=== PATIENT | male | born 1955 | race Caucasian/White ===

== ENCOUNTER → 2017-10-06 | Day surgery (SDC) | payer OTHER ==
[~2017-10-06] MED LIST: ACETAMINOPHEN325 M1 PO; ARANESP100 MCG/1 SC; ASPIRIN325 MG PO; ATORVASTATIN CA10 MG PO; BACITRACIN 50,000 UNIT VIAL ONE; BAYER ASPIRIN PO; BUPIVACAINE HCL 0.5% INJ 30 ML VIAL INJ ONE; CALCIUM ACETAT667 M1 PO; CARVEDILOL25 MG PO; CATHFLO ACTIVASE2 MG IV; CEFAZOLIN SOD 1 GM VIAL ONE; CLONIDINE HCL0.2 MG PO; DEXAMETHASONE SOD PHOS INJ 4 MG/ML VIAL ONE; DIPHENOXYLATE-1 EACH PO; DOCUSATE SODIU100 MG PO; FENTANYL CITRATE/PF 100MCG/2 ML INJ ONE; FLUCONAZOLE200 MG PO; FUROSEMIDE40 MG PO; FUROSEMIDE40 MG/4 ML IV; GABAPENTIN100 MG PO; HYDRALAZINE HC100 MG PO; INSULIN PEN SC; ISOSORBIDE MONO60 MG PO; KAYEXALATE453.6 GM PO; LASIX40 MG PO; LEVEMIR100 UNIT/1 SC; LIDOCAINE HCL 2% LOCAL INJ 5 ML SDV VIAL INJ ONE; LIDODERM700 MG TD; MEROPENEM500 MG IV; MIDAZOLAM HCL 2 MG/2 ML VIAL ONE; MULTI-VITAMIN1 EACH PO; NEOSTIGMINE 1 MG/ML 10ML VIAL ONE; NOVOLOG MI100 UNITS/ SC; ONDANSETRON HCL INJ 2 MG/ML VIAL ONE; PROPOFOL IV EMULSION 10 MG/ML 20 ML VIAL ONE; SANTYL15 GM TOP; SEVOFLURANE INHAL SOLN 250 ML PEN BTL ONE; TRAMADOL-ACETAMI1 EA PO; VANCOMYCIN HCL 1 GM VIAL ONE; VANCOMYCIN HCL1 GM IV
[2017-10-06 05:42] LABS: BASOPHILS # (AUTO) 0.1 (0.0-0.1); BASOPHILS % 0.4 % (0.0-1.0); EOSINOPHILS # (AUTO) 0.1 (0.0-0.4); HEMOGLOBIN 8.1 g/dL (14.0-18.0); LYMPHOCYTES # (AUTO) 1.3 (1.0-3.2); LYMPHOCYTES % 9.6 % (18.0-39.1); MEAN CORPUSCULAR HEMOGLOBIN 29.8 pg (28-32); MEAN CORPUSCULAR HGB CONC 36.5 g/dL (31-35); MEAN CORPUSCULAR VOLUME 81.6 fL (81-99); MONOCYTES # (AUTO) 0.8 (0.2-0.8); MONOCYTES % 5.7 % (4.4-11.3); NEUTROPHILS # (AUTO) 11.6 (2.1-6.9); NEUTROPHILS % 82.9 % (38.7-80.0); PLATELET COUNT 290 x10e3/uL (140-360); RED BLOOD COUNT 2.72 x10e6/uL (4.3-5.7); RED CELL DISTRIBUTION WIDTH 13.2 % (11.7-14.4)
[2017-10-06 05:57] LABS: HEMATOCRIT 22.2 % (38.2-49.6)
[2017-10-06 06:08] LABS: CALCIUM 7.2 mg/dL (8.4-10.2); CREATININE, SERUM 5.88 mg/dL (0.72-1.25)
--- NOTE | 2017-10-06 06:55 | Diagnostic Imaging Report ---
PROCEDURE: CHEST SINGLE (PORTABLE) COMPARISON: None. INDICATIONS: PRE-OP CXR FINDINGS: LUNGS: No consolidations or edema. PLEURA: No effusions or pneumothorax. HEART \T\ MEDIASTINUM: The heart is within normal size-limits. BONES \T\ SOFT TISSUES: No acute findings. CONCLUSION: No acute thoracic abnormality. Dictated by: Link Salazar M.D. on 10/06/2017 at 6:55 Electronically approved by: Link Salazar M.D. on 10/06/2017 at 6:55
--- NOTE | 2017-10-06 10:26 | Operative Report ---
DATE OF PROCEDURE: October 06, 2017 DATE OF : 1955 PREOPERATIVE DIAGNOSIS: Right foot osteomyelitis. POSTOPERATIVE DIAGNOSIS: Right foot osteomyelitis. PLANNED PROCEDURE: Right foot transmetatarsal amputation. SURGEON: Rick Ngo DPM AIRPLANE DISPATCH CLERK: Kee Crowe DPM ANESTHESIA: General with a postoperative block consisting of 15 mL of 0.5% Marcaine plain. HEMOSTASIS: Esmarch tourniquet applied for approximately 30 minutes. MATERIALS: 3-0 nylon. ESTIMATED BLOOD LOSS: Less than 10 mL. PATHOLOGY: Anaerobic and aerobic cultures, hallux, 2nd digit, and 2nd metatarsal sent for gross specimen. DETAILS OF PROCEDURE: Patient was seen in the preoperative waiting and the correct procedure and site was identified. The patient was brought to the operating room, placed on the operating table in the supine position. General anesthesia was initiated at this time. The right foot, ankle, and leg were then scrubbed, prepped, and draped in the usual aseptic manner. An Esmarch tourniquet was applied for approximately 30 minutes. Attention was directed to the distal aspect of the patient's right foot where an open ulceration is noted to the plantar aspect of the patient's 2nd metatarsophalangeal joint. There has been a previous amputation of partial rays 3, 4, and 5. The wound probes deep down to the level of bone. The decision was made to proceed with a transmetatarsal amputation of the remaining 1st and 2nd rays. Utilizing a large converging semi-elliptical incision ellipsing the wound, the incision was started. It was carried deep down to the level of bone. Utilizing a towel clamp, the hallux was clasped and the 1st and 2nd digit were disarticulated from the metatarsophalangeal joint and passed off to the back table. At this point, wound cultures were taken of the 2nd metatarsophalangeal joint. Utilizing a sagittal saw, an osteotomy was performed in the distal shaft of the 1st metatarsal and the remaining 2nd metatarsal. These were dissected and excised and passed off to the back table. Utilizing intraoperative fluoroscopy, it was confirmed that the metatarsal parabola was intact. The wound was then debrided of all necrotic and devitalized tissue. All tendons were pulled distally, cut, and allowed to retract proximally into the foot. The wound was then flushed with copious amounts of sterile saline mixed with bacitracin. Wound edges were prepped for closure by removing all dog-ears. The wound was reapproximated utilizing simple interrupted sutures with 3-0 nylon. The incision site was then dressed with Adaptic, 4 x 4's, Kerlix, Tuan wrap, and a postop shoe. Patient tolerated the procedure and anesthesia well. Patient was transferred to the postoperative recovery unit with vital signs stable and vascular status intact. The patient was monitored there for a short period time before being sent home with the following written and oral instructions: 1. Keep the dressing clean, dry, and tact. 2. The patient is to remain 100% nonweightbearing to the right lower extremity. 3. Patient was given the office number and instructed to contact us if any problems should arise. Job#: [id number] VAS
== END | disposition home or self-care (01) ==
LOC: OR 05:28
PROVIDERS: ATTEND Podiatrist Foot & Ankle Surgery
DX: M86.171 Other acute osteomyelitis, right ankle and foot (principal); D64.9 Anemia, unspecified; E11.22 Type 2 diabetes mellitus with diabetic chronic kidney disease; I12.9 Hypertensive chronic kidney disease with stage 1 through stage 4 chronic kidney disease, or unspecified chronic kidney disease; N18.9 Chronic kidney disease, unspecified; Z79.82 Long term (current) use of aspirin; Z79.4 Long term (current) use of insulin
CPT/HCPCS: 28805; 36415; 71045; 80048; 82948; 85025; 87071; 87075; 87186; 87205; 88305; 88311; 93005; J0690; J2001; J2250; J2405; J3370; 88307; J1100; J2710

== ENCOUNTER → 2017-10-26 | Outpatient (CLI) | payer OTHER ==
[~2017-10-26] MED LIST changes: -BACITRACIN 50,000 UNIT VIAL ONE; -BUPIVACAINE HCL 0.5% INJ 30 ML VIAL INJ ONE; -CEFAZOLIN SOD 1 GM VIAL ONE; -DEXAMETHASONE SOD PHOS INJ 4 MG/ML VIAL ONE; -FENTANYL CITRATE/PF 100MCG/2 ML INJ ONE; -LIDOCAINE HCL 2% LOCAL INJ 5 ML SDV VIAL INJ ONE; -MIDAZOLAM HCL 2 MG/2 ML VIAL ONE; -NEOSTIGMINE 1 MG/ML 10ML VIAL ONE; -ONDANSETRON HCL INJ 2 MG/ML VIAL ONE; -PROPOFOL IV EMULSION 10 MG/ML 20 ML VIAL ONE; -SEVOFLURANE INHAL SOLN 250 ML PEN BTL ONE; -VANCOMYCIN HCL 1 GM VIAL ONE
== END ==
LOC: WCC 07:58
PROVIDERS: ATTEND Family Medicine
DX: E11.621 Type 2 diabetes mellitus with foot ulcer (principal); E11.22 Type 2 diabetes mellitus with diabetic chronic kidney disease; T87.89 Other complications of amputation stump; M86.9 Osteomyelitis, unspecified; L97.514 Non-pressure chronic ulcer of other part of right foot with necrosis of bone; N18.4 Chronic kidney disease, stage 4 (severe); A49.02 Methicillin resistant Staphylococcus aureus infection, unspecified site; B96.5 Pseudomonas (aeruginosa) (mallei) (pseudomallei) as the cause of diseases classified elsewhere; B96.89 Other specified bacterial agents as the cause of diseases classified elsewhere; I10 Essential (primary) hypertension; I50.9 Heart failure, unspecified

== ENCOUNTER → 2017-11-06 | Outpatient (CLI) | payer OTHER | LOC: WCC 09:12 | PROVIDERS: ATTEND Family Medicine | DX: T87.89 Other complications of amputation stump (principal); E11.621 Type 2 diabetes mellitus with foot ulcer; E11.22 Type 2 diabetes mellitus with diabetic chronic kidney disease; M86.9 Osteomyelitis, unspecified; L97.514 Non-pressure chronic ulcer of other part of right foot with necrosis of bone; B96.89 Other specified bacterial agents as the cause of diseases classified elsewhere; B96.5 Pseudomonas (aeruginosa) (mallei) (pseudomallei) as the cause of diseases classified elsewhere; A49.02 Methicillin resistant Staphylococcus aureus infection, unspecified site; N18.4 Chronic kidney disease, stage 4 (severe); I10 Essential (primary) hypertension; I50.9 Heart failure, unspecified ==

== ENCOUNTER → 2017-11-07 | Outpatient (CLI) | payer OTHER | LOC: WCC 09:50 | PROVIDERS: ATTEND Family Medicine | DX: T87.89 Other complications of amputation stump (principal); E11.621 Type 2 diabetes mellitus with foot ulcer; E11.22 Type 2 diabetes mellitus with diabetic chronic kidney disease; L97.514 Non-pressure chronic ulcer of other part of right foot with necrosis of bone; M86.9 Osteomyelitis, unspecified; B96.89 Other specified bacterial agents as the cause of diseases classified elsewhere; A49.02 Methicillin resistant Staphylococcus aureus infection, unspecified site; B96.5 Pseudomonas (aeruginosa) (mallei) (pseudomallei) as the cause of diseases classified elsewhere; N18.4 Chronic kidney disease, stage 4 (severe); I10 Essential (primary) hypertension; I50.9 Heart failure, unspecified | CPT/HCPCS: 36415; 82948; 99211; G0277 ==

== ENCOUNTER → 2017-11-14 | Outpatient (CLI) | payer OTHER | LOC: WCC 13:48 | PROVIDERS: ATTEND Family Medicine | DX: T87.89 Other complications of amputation stump (principal); E11.22 Type 2 diabetes mellitus with diabetic chronic kidney disease; E11.621 Type 2 diabetes mellitus with foot ulcer; M86.9 Osteomyelitis, unspecified; L97.514 Non-pressure chronic ulcer of other part of right foot with necrosis of bone; B96.89 Other specified bacterial agents as the cause of diseases classified elsewhere; B96.5 Pseudomonas (aeruginosa) (mallei) (pseudomallei) as the cause of diseases classified elsewhere; A49.02 Methicillin resistant Staphylococcus aureus infection, unspecified site; I10 Essential (primary) hypertension; N18.4 Chronic kidney disease, stage 4 (severe); I50.9 Heart failure, unspecified | CPT/HCPCS: 36415; 82948; G0277 ==

== ENCOUNTER → 2017-11-15 | Outpatient (CLI) | payer OTHER ==
[2017-11-15 10:22] LABS: BASOPHILS % 0.2 % (0.0-1.0); EOSINOPHILS # (AUTO) 0.2 (0.0-0.4); EOSINOPHILS % 2.5 % (0.0-6.0); HEMATOCRIT 18.5 % (38.2-49.6); LYMPHOCYTES % 15.5 % (18.0-39.1); MEAN CORPUSCULAR HEMOGLOBIN 30.3 pg (28-32); MEAN CORPUSCULAR HGB CONC 34.1 g/dL (31-35); MEAN CORPUSCULAR VOLUME 88.9 fL (81-99); MONOCYTES # (AUTO) 0.6 (0.2-0.8); NEUTROPHILS # (AUTO) 4.4 (2.1-6.9); NEUTROPHILS % 72.3 % (38.7-80.0); PLATELET COUNT 171 x10e3/uL (140-360); RED BLOOD COUNT 2.08 x10e6/uL (4.3-5.7); RED CELL DISTRIBUTION WIDTH 14.2 % (11.7-14.4)
[2017-11-15 10:30] LABS: HEMOGLOBIN 6.3 g/dL (14.0-18.0)
[2017-11-15 10:41] LABS: ALBUMIN 2.8 g/dL (3.5-5.0); ALBUMIN/GLOBULIN RATIO 0.7 (0.8-2.0); ANION GAP 16.5 mmol/L (8-16); CALCIUM 7.2 mg/dL (8.4-10.2); CREATININE, SERUM 7.31 mg/dL (0.72-1.25); POTASSIUM 4.5 mmol/L (3.5-5.1)
[2017-11-15 11:14] LABS: ERYTHROCYTE SEDIMENTATION RATE 129 mm/hr (0-13)
== END ==
LOC: WCC 08:56
PROVIDERS: ATTEND Family Medicine
DX: T87.89 Other complications of amputation stump (principal); E11.621 Type 2 diabetes mellitus with foot ulcer; E11.22 Type 2 diabetes mellitus with diabetic chronic kidney disease; L97.514 Non-pressure chronic ulcer of other part of right foot with necrosis of bone; M86.9 Osteomyelitis, unspecified; B96.89 Other specified bacterial agents as the cause of diseases classified elsewhere; A49.02 Methicillin resistant Staphylococcus aureus infection, unspecified site; B96.5 Pseudomonas (aeruginosa) (mallei) (pseudomallei) as the cause of diseases classified elsewhere; N18.4 Chronic kidney disease, stage 4 (severe); I10 Essential (primary) hypertension; I50.9 Heart failure, unspecified
CPT/HCPCS: 36415; 80053; 83036; 84134; 85025; 85651; 86140; 87071; 87075; 87186; 87205; 99213; G0277

== ENCOUNTER → 2017-11-17 | Outpatient (CLI) | payer OTHER | LOC: WCC 09:13 | PROVIDERS: ATTEND Family Medicine | DX: E11.621 Type 2 diabetes mellitus with foot ulcer (principal); E11.22 Type 2 diabetes mellitus with diabetic chronic kidney disease; L97.514 Non-pressure chronic ulcer of other part of right foot with necrosis of bone; M86.9 Osteomyelitis, unspecified; I10 Essential (primary) hypertension; N18.4 Chronic kidney disease, stage 4 (severe); B96.89 Other specified bacterial agents as the cause of diseases classified elsewhere; A49.02 Methicillin resistant Staphylococcus aureus infection, unspecified site; B96.5 Pseudomonas (aeruginosa) (mallei) (pseudomallei) as the cause of diseases classified elsewhere; I50.9 Heart failure, unspecified | CPT/HCPCS: 36415; 82948 ==

== ENCOUNTER → 2017-11-20 | Outpatient (CLI) | payer OTHER | LOC: WCC 12:07 | PROVIDERS: ATTEND Family Medicine | DX: E11.621 Type 2 diabetes mellitus with foot ulcer (principal); E11.22 Type 2 diabetes mellitus with diabetic chronic kidney disease; L97.514 Non-pressure chronic ulcer of other part of right foot with necrosis of bone; M86.9 Osteomyelitis, unspecified; B96.89 Other specified bacterial agents as the cause of diseases classified elsewhere; N18.4 Chronic kidney disease, stage 4 (severe); I10 Essential (primary) hypertension; I50.9 Heart failure, unspecified ==

== ENCOUNTER → 2017-11-21 | Outpatient (CLI) | payer OTHER | LOC: WCC 09:09 | PROVIDERS: ATTEND Family Medicine | DX: E11.621 Type 2 diabetes mellitus with foot ulcer (principal); E11.22 Type 2 diabetes mellitus with diabetic chronic kidney disease; L97.514 Non-pressure chronic ulcer of other part of right foot with necrosis of bone; M86.9 Osteomyelitis, unspecified; B96.89 Other specified bacterial agents as the cause of diseases classified elsewhere; I10 Essential (primary) hypertension; N18.4 Chronic kidney disease, stage 4 (severe); I50.9 Heart failure, unspecified ==

== ENCOUNTER → 2017-11-24 | Outpatient (CLI) | payer OTHER | LOC: WCC 09:32 | PROVIDERS: ATTEND Family Medicine | DX: E11.621 Type 2 diabetes mellitus with foot ulcer (principal); E11.22 Type 2 diabetes mellitus with diabetic chronic kidney disease; L97.514 Non-pressure chronic ulcer of other part of right foot with necrosis of bone; M86.9 Osteomyelitis, unspecified; B96.89 Other specified bacterial agents as the cause of diseases classified elsewhere; N18.4 Chronic kidney disease, stage 4 (severe); I10 Essential (primary) hypertension; I50.9 Heart failure, unspecified ==

== ENCOUNTER → 2017-11-27 | Outpatient (CLI) | payer OTHER | LOC: WCC 13:30 | PROVIDERS: ATTEND Family Medicine | DX: E11.621 Type 2 diabetes mellitus with foot ulcer (principal); E11.22 Type 2 diabetes mellitus with diabetic chronic kidney disease; M86.9 Osteomyelitis, unspecified; L97.514 Non-pressure chronic ulcer of other part of right foot with necrosis of bone; B96.89 Other specified bacterial agents as the cause of diseases classified elsewhere; N18.4 Chronic kidney disease, stage 4 (severe); I10 Essential (primary) hypertension; I50.9 Heart failure, unspecified ==

== ENCOUNTER → 2017-12-01 | Outpatient (CLI) | payer OTHER | LOC: WCC 10:49 | PROVIDERS: ATTEND Internal Medicine Infectious Disease | DX: E11.22 Type 2 diabetes mellitus with diabetic chronic kidney disease (principal); E11.621 Type 2 diabetes mellitus with foot ulcer; L97.514 Non-pressure chronic ulcer of other part of right foot with necrosis of bone; M86.9 Osteomyelitis, unspecified; N18.4 Chronic kidney disease, stage 4 (severe); I10 Essential (primary) hypertension; I50.9 Heart failure, unspecified; B96.89 Other specified bacterial agents as the cause of diseases classified elsewhere ==

== ENCOUNTER 2017-12-12 15:21 | Inpatient (IN) | payer OTHER ==
[~2017-12-12] VITALS: Ht 182.9 cm; Wt 80.9 kg
--- OUTSIDE RECORDS SUMMARY | 2017-12-12 15:23 | XMS REPORT ---
Author Author [facility] Address Unknown Phone Unavailable Care Team Providers Care Collar Pointer Name Role Phone Iris ALBERCHT Unavailable Unavailable Problems This patient has no known problems. Allergies, Adverse Reactions, Alerts This patient has no known allergies or adverse reactions. Medications This patient has no known medications. Results Test Description Test Time Test Comments Text Results Atomic Results Result Comments CHEST SINGLE (PORTABLE) [place] [id number] Patient Name: CL HIGGINBOTHAM MR #: [id number] : 1955 Age/Sex: 62/M Req #: [id number] Adm Physician: Ordered by: Iris ALBRECHT DPM Report #: [id number] Location: OR Room/Bed: Procedure: [id number] DX/CHEST SINGLE (PORTABLE) Exam Date: 10/06/17 Exam Time: 0538 REPORT STATUS: Signed PROCEDURE: CHEST SINGLE (PORTABLE) COMPARISON: None. INDICATIONS: PRE-OP CXR FINDINGS: LUNGS: No consolidations or edema. PLEURA: No effusions or pneumothorax. HEART T MEDIASTINUM: The heart is within normal size-limits. BONES T SOFT TISSUES: No acute findings. CONCLUSION: No acute thoracic abnormality. Dictated by: Maddison Segal M.D. on 10/06/2017 at 6:55 Electronically approved by: Maddison Segal M.D. on 10/06/2017 at 6:55 Dictated By: MADDISON SEGAL MD 4 Transcribed By: KELVIN on 10/06/17654 COPY TO: Iris ALBRECHT DPM
--- NOTE | 2017-12-12 16:28 | Diagnostic Imaging Report ---
PROCEDURE: A single AP view of the chest. COMPARISON: Patients [facility], , CHEST SINGLE (PORTABLE), 10/06/2017, 5:39. INDICATIONS: SHORTNESS OF BREATH, RENAL FAILURE FINDINGS: Lines/tubes: None. Lungs: The lungs are well inflated and clear. There is no evidence of pneumonia or pulmonary edema. Pleura: There is no pleural effusion or pneumothorax. Heart and mediastinum: The heart and the mediastinum are unremarkable. Bones: No acute bony abnormality. IMPRESSION: 1. No acute cardiopulmonary abnormalities. Luther Cortez M.D. Dictated by: Luther Cortez M.D. on 12/12/2017 at 16:30 Electronically approved by: Luther Cortez M.D. on 12/12/2017 at 16:30
[2017-12-12] MEDS ORDERED: PROPOFOL IV EMULSION 10 MG/ML 50 ML VIAL ONE (17:18)
[2017-12-12] MEDS ORDERED: GLUCAGON FOR INJ 1 MG VIAL ONE (17:18)
[2017-12-12 18:05] LABS: BASOPHILS % 0.3 % (0.0-1.0); EOSINOPHILS # (AUTO) 0.3 (0.0-0.4); EOSINOPHILS % 3.3 % (0.0-6.0); LYMPHOCYTES # (AUTO) 1.1 (1.0-3.2); LYMPHOCYTES % 12.1 % (18.0-39.1); MEAN CORPUSCULAR HEMOGLOBIN 29.6 pg (28-32); MEAN CORPUSCULAR VOLUME 87.1 fL (81-99); MONOCYTES # (AUTO) 0.6 (0.2-0.8); MONOCYTES % 5.9 % (4.4-11.3); NEUTROPHILS # (AUTO) 7.3 (2.1-6.9); NEUTROPHILS % 77.9 % (38.7-80.0); PLATELET COUNT 162 x10e3/uL (140-360); RED BLOOD COUNT 1.86 x10e6/uL (4.3-5.7); RED CELL DISTRIBUTION WIDTH 13.5 % (11.7-14.4)
[2017-12-12 18:08] LABS: HEMATOCRIT 16.2 % (38.2-49.6); HEMOGLOBIN 5.5 g/dL (14.0-18.0)
[2017-12-12] MEDS ORDERED: FUROSEMIDE40 MG PO (18:11)
[2017-12-12] MEDS ORDERED: LEVEMIR100 UNIT/1 SQ (18:11)
[2017-12-12 18:14] LABS: INR 1.41; PARTIAL THROMBOPLASTIN TIME 31.6 seconds (23.8-35.5); PROTHROMBIN TIME 16.2 seconds (11.9-14.5)
[2017-12-12] MEDS ORDERED: SODIUM CHLORIDE 0.9% 250ML 250 ML IV ONE (18:15)
[2017-12-12 18:22] LABS: ALBUMIN 3.5 g/dL (3.5-5.0); ALBUMIN/GLOBULIN RATIO 0.8 (0.8-2.0); ANION GAP 19.6 mmol/L (8-16); CALCIUM 7.7 mg/dL (8.4-10.2); CREATININE, SERUM 8.95 mg/dL (0.72-1.25); MAGNESIUM 1.6 MG/DL (1.3-2.1); PHOSPHORUS 8.5 MG/DL (2.3-4.7); POTASSIUM 4.6 mmol/L (3.5-5.1)
[2017-12-12 18:41] LABS: THYROID STIMULATING HORMONE 1.654 uIU/mL (0.350-4.940)
[2017-12-12] MEDS ORDERED: SODIUM CHLORIDE 0.9% 1000ML 1,000 ML IV ONE (19:00)
[2017-12-12] MEDS ORDERED: DEXTROSE 50% SYRINGE 50 ML IV PRN (19:30)
[2017-12-12] MEDS ORDERED: SODIUM CHLORIDE FLUSH 10 ML SYR INJ PRN (19:30)
[2017-12-12] MEDS ORDERED: ONDANSETRON HCL INJ 2 MG/ML VIAL IV PRN (19:30)
[2017-12-12 21:00] VITALS: BP 155/82
[2017-12-12] MEDS: INSULIN REGULAR, HUMAN 100 UNIT/1 ML 3ML VIAL SQ SCH (21:00)
[2017-12-12 21:45] VITALS: BP 155/82
[2017-12-12] MEDS ORDERED: SODIUM CHLORIDE 0.9% 250ML 250 ML ONE (22:15)
[2017-12-13] VITALS (12 sets, daily range): BP systolic 119–160; BP diastolic 65–93
[2017-12-13] MEDS: INSULIN REGULAR, HUMAN 100 UNIT/1 ML 3ML VIAL SQ SCH ×4 (07:30→20:10)
[2017-12-13] MEDS: SEVELAMER CARBONATE 800 MG TAB PO SCH ×3 (08:00→16:41)
[2017-12-13] MEDS: NIFEDIPINE CR 30 MG TAB PO SCH (09:00)
[2017-12-13] MEDS: CARVEDILOL 12.5 MG TAB PO SCH ×2 (09:00→16:41)
[2017-12-13] MEDS: CHOLECALCIFEROL 1,000 UNIT TAB PO SCH (09:00)
[2017-12-13 10:12] LABS: BASOPHILS % 0.3 % (0.0-1.0); EOSINOPHILS # (AUTO) 0.2 (0.0-0.4); EOSINOPHILS % 2.5 % (0.0-6.0); HEMATOCRIT 20.5 % (38.2-49.6); LYMPHOCYTES # (AUTO) 0.8 (1.0-3.2); LYMPHOCYTES % 8.7 % (18.0-39.1); MEAN CORPUSCULAR HEMOGLOBIN 29.9 pg (28-32); MEAN CORPUSCULAR HGB CONC 34.1 g/dL (31-35); MEAN CORPUSCULAR VOLUME 87.6 fL (81-99); MONOCYTES # (AUTO) 0.6 (0.2-0.8); MONOCYTES % 6.5 % (4.4-11.3); NEUTROPHILS # (AUTO) 7.2 (2.1-6.9); NEUTROPHILS % 81.4 % (38.7-80.0); PLATELET COUNT 125 x10e3/uL (140-360); RED BLOOD COUNT 2.34 x10e6/uL (4.3-5.7); RED CELL DISTRIBUTION WIDTH 13.2 % (11.7-14.4)
[2017-12-13 10:34] LABS: ALBUMIN 2.9 g/dL (3.5-5.0); ALBUMIN/GLOBULIN RATIO 0.8 (0.8-2.0); ANION GAP 17.7 mmol/L (8-16); CALCIUM 7.5 mg/dL (8.4-10.2); CREATININE, SERUM 8.84 mg/dL (0.72-1.25); MAGNESIUM 1.5 MG/DL (1.3-2.1); POTASSIUM 4.7 mmol/L (3.5-5.1)
[2017-12-13 10:54] LABS: THYROID STIMULATING HORMONE 1.345 uIU/mL (0.350-4.940)
[2017-12-13 11:10] LABS: FERRITIN 1736.91 ng/mL (21.81-274.66)
--- NOTE | 2017-12-13 14:30 | Consultation ---
DATE OF CONSULTATION: December 13, 2017 RENAL CONSULTATION Thank you for this consultation, Dr. Pham. Mr. Loredo is a pleasant, 62-year-old male patient of mine with chronic kidney disease, stage 5, that has continued to progress. I saw him for the 1st time in my clinic less than a month ago when he was referred by his end user support specialist here at [facility]. As part of routine wound care workup, they did blood tests on him, and he was found to have elevated creatinine around 5.4 range. He was referred to my clinic. This 5.4 creatinine level was about 3 months ago. Subsequently, I proceeded to do more blood work for his subsequent clinic followup visit that was going to happen in the next week or so. He was found to have elevated BUN in the 120s range and creatinine in the 8.95 range and was found to be profoundly anemic with hemoglobin of 4.8. I proceeded to call the patient and admit him directly to [facility]. The patient did agree and accept that he is at end-stage renal disease and that he would be willing to start on dialysis. He also agreed that he would require blood transfusions. He was admitted overnight through the emergency room and received 3 units of packed red blood cells. The patient's creatinine from yesterday is 8.95 and BUN of 124. These are from yesterday evening. The patient's hemoglobin yesterday evening was at 5.5 and hematocrit 16.2. He has received 3 units of packed red blood cells already. The patient currently does not appear to be fluid overloaded. No nausea, no vomiting, no chest pain, no fever, no chills. No abdominal pain. He does not say that he has had decreased appetite. He does have generalized weakness. He does have a low bicarb of 12 as well, which was from yesterday. Renal consultation has been asked for the management of what is now end-stage renal disease and the management of starting the patient on dialysis. PAST MEDICAL HISTORY 1. Chronic kidney disease, stage 5. 2. History of hypertension. 3. History of peripheral vascular disease with right toe amputation and forefoot amputation. ALLERGIES: NO KNOWN DRUG ALLERGIES. SOCIAL HISTORY: No current tobacco or alcohol use. FAMILY HISTORY: Noncontributory. REVIEW OF SYSTEMS: See HPI. Otherwise, all systems are negative. CURRENT MEDICATIONS 1. Vitamin D3 1,000 units daily. 2. Nifedipine XL. 3. Sevelamer. 4. Carvedilol. PHYSICAL EXAMINATION VITAL SIGNS: Blood pressure 151/80, 86 pulse, 19 respirations, afebrile. HEENT: No cervical lymphadenopathy. NECK: Supple, without masses. No obvious JVD. Moist oral mucosa. SKIN: Moist, with good skin turgor. CHEST WALL: Good expansion. No chest wall tenderness. LUNGS: Clear to auscultation bilaterally. CARDIOVASCULAR: S1 and S2. No obvious gallop, rub or murmur. ABDOMEN: Soft. Positive bowel sounds. Nontender. No organomegaly. EXTREMITIES: Trace to 1+ edema of lower extremities. The right lower extremity has some erythema, forefoot amputation, and some nonhealing ulcer as well on the right spencer area. NEUROLOGIC: Awake, alert, oriented x3. Grossly otherwise nonfocal exam. LABORATORY WORKUP: Sodium 136, potassium 4.6, chloride 110, bicarb 12. This is from yesterday. BUN 124 and creatinine 8.95. Phosphorus is 8.5. Calcium 7.7 and magnesium 1.6. H and H 5.5 and 16.2. White count 9.39 and platelet count 162. IMPRESSION AND PLAN 1. End-stage renal disease. Will start the patient on his 1st treatment of dialysis starting today. Will get interventional radiology to place a tunneled dialysis catheter. Will have sr. social media & mobile manager to arrange outpatient dialysis under our care. Will also do a 2nd treatment of dialysis tomorrow. Will make further recommendations. 2. Hypertension. Continue current home medications. The blood pressure is reasonably well controlled. 3. Anemia of chronic disease. He received 3 units of PRBCs. Will check iron studies. Will also start him on Epogen and make further recommendations. 4. Secondary hyperparathyroidism. Will get baseline intact PTH and vitamin D 25-OH level and make further recommendations. 5. Mineral bone disease. Continue his Sevelamer. We may increase the dose if the phosphorus does not come down as dialysis is started. Thank you, once again, for the consultation. We will follow the patient closely along with you and make further recommendations. Job#: [id number] cc:CARLOS A PHAM MD
[2017-12-13] MEDS ORDERED: ONDANSETRON HCL 4 MG ORAL DISINTEGRATING TAB PO PRN (18:00)
[2017-12-13] MEDS: EPOETIN ALFA 10000 UNIT/ML VIAL SC SCH (18:42)
[2017-12-13] MEDS: PANTOPRAZOLE SOD 40 MG TABEC PO SCH (18:42)
[2017-12-13] MEDS: FUROSEMIDE 40 MG TAB PO SCH (18:42)
--- NOTE | 2017-12-13 19:48 | History and Physical ---
PRIMARY CARE PROVIDER: Dr. Landers . CHIEF COMPLAINT: New end-stage renal disease, to start hemodialysis. HISTORY OF PRESENT ILLNESS: Mr. Loredo is a 62-year-old gentleman who has had progressive diabetic and hypertensive nephropathy. He had stage IV kidney disease about a year ago. His chronic kidney disease has progressed to stage 5. Earlier this year, the patient had a transmetatarsal amputation of the right foot and during that hospitalization, he did require hemodialysis for several treatments, but then improved and was not on dialysis at the time of discharge. He presents now with progressive chronic kidney disease that has reached end-stage with intention to proceed and started on hemodialysis during this admission. REVIEW OF SYSTEMS: He denies fever, chills or weight loss. He denies sinus congestion or sore throat. He denies chest pain or palpitations. He denies shortness of breath, wheezing or cough. He denies abdominal pain, nausea, vomiting or melena. He denies dysuria or flank pain. He denies rash or pruritus. He denies bleeding or bruising. He denies headache, vertigo or loss of consciousness. He denies depression, agitation, homicidal or suicidal ideation. PAST MEDICAL HISTORY: Significant for longstanding hypertension, type 2 diabetes, chronic kidney disease stage 5 and peripheral arterial disease with previous right foot transmetatarsal amputation earlier this year. Patient is also status post cholecystectomy. CURRENT MEDICATIONS: Include 1. Levemir 20 units at bedtime. 2. Lasix 40 mg twice daily. 3. Earl aspirin 81 mg daily. ALLERGIES: HE HAS NO KNOWN DRUG ALLERGIES. FAMILY HISTORY: Significant for hypertension and diabetes. SOCIAL HISTORY: The patient is . Guinean is his primary language. He does not smoke, drink or use illegal drugs. He is generally independently functioning. PHYSICAL EXAM PSYCHIATRIC: He is alert and oriented times 3 with normal mood and affect. CONSTITUTIONAL: He has normal body habitus. He is in no acute distress. VITAL SIGNS: Blood pressure 135/66. Pulse 85. Respiratory rate 18. O2 sat 100% on room air. Temperature 97.1. HEENT: His head is atraumatic. His eyes are anicteric with clear conjunctivae. Ears and nares are without erythema or discharge. Oropharynx is clear. NECK: Supple with no mass or thyromegaly. LYMPHATIC SYSTEM: He has no palpable cervical, axillary or inguinal adenopathy. CARDIOVASCULAR: His heart rate has a regular rate and rhythm without murmur or extra heart sound. He has no peripheral edema. He has a healing right transmetatarsal amputation. RESPIRATORY: Lungs are clear to auscultation and percussion with normal respiratory effort. GASTROINTESTINAL: His abdomen is soft without organomegaly, masses or tenderness. He has normal bowel sounds. CUTANEOUS: Skin is warm and dry to touch with no rash or skin breakdown. MUSCULOSKELETAL: His joints are in normal alignment without erythema or swelling. He has a right transmetatarsal amputation as noted above. NEUROLOGIC: His exam is nonfocal with intact cranial nerves and no motor or sensory deficits. DIAGNOSTIC STUDIES: His chest x-ray shows no acute disease. Fecal occult blood test is positive. His initial CBC shows a white count of 9.39 with 78% neutrophils, 12% lymphocytes, hemoglobin 5.5, hematocrit 16.2 and platelet count 162,000. He had iron of 144 which is actually elevated, percent saturation 88% which is also elevated. His BNP is 380.3. Troponin 0.009. TSH is 1.654. The patient received 3 units of packed red cells resulting in hemoglobin of 7.0, hematocrit 20.5. His coags show PT of 16.2, INR 1.41, PTT is 31.6. His chemistry shows normal electrolytes, CO2 12, glucose 88, creatinine 8.95, BUN 124 for a GFR of 6 and calcium of 7.7. His transaminases, bilirubin and alk phos are normal. IMPRESSION AND PLAN 1. Acute blood loss anemia. The patient has a hemoglobin of 5.5, has been transfused 3 units of packed red cells resulting in hemoglobin of 7.0. He is hemoccult positive. 2. Upper gastrointestinal bleeding. The patient is hemoccult positive and grossly anemic. Will start the patient on Protonix 40 mg twice daily and consult gastroenterology for possible endoscopy. 3. End-stage renal disease, to start on hemodialysis. The patient will need to have a hemodialysis catheter placed by interventional radiology and nephrology will be initiating hemodialysis. 4. Hypertension, complicated by end-stage renal disease. The patient will be on Coreg, Procardia and p.r.n. intravenous hydralazine. 5. Type 2 diabetes with peripheral arterial disease. The patient will be using sliding scale insulin for glycemia control. 6. Peripheral arterial disease with a history of right foot transmetatarsal amputation. We will get wound care to see the patient to continue wound care on the transmetatarsal amputation site. 7. For prophylaxis, the patient will be on Protonix for gastrointestinal prophylaxis and sequential compression devices for deep vein thrombosis prophylaxis. Job#: [id number] GE
[2017-12-13] MEDS ORDERED: MIDAZOLAM HCL 2 MG/2 ML VIAL ONE (21:59)
[2017-12-13] MEDS ORDERED: LIDOCAINE HCL 2% LOCAL 20 ML VIAL ONE (21:59)
[2017-12-13] MEDS ORDERED: FENTANYL CITRATE/PF 100MCG/2 ML INJ ONE (21:59)
[2017-12-13] MEDS ORDERED: HEPARIN SOD (PORCINE) 1000 UNIT/ML 30ML ONE (21:59)
[2017-12-13] MEDS ORDERED: SODIUM CHLORIDE 0.9% 500ML 500 ML ONE ×2 (22:00)
[2017-12-13] MEDS ORDERED: SODIUM CHLORIDE 0.9% 1000ML 1,000 ML ONE (22:32)
[2017-12-13] MEDS ORDERED: LIDOCAINE 1% W/EPINEPHRINE 20 ML VIAL ONE (22:56)
[2017-12-14] VITALS (7 sets, daily range): BP systolic 140–183; BP diastolic 67–86
--- NOTE | 2017-12-14 01:17 | Diagnostic Imaging Report ---
EXAMINATION: CHEST SINGLE (PORTABLE) INDICATION: Right IJ catheter placement. COMPARISON: 12/12/2017 FINDINGS: TUBES and LINES: Interval placement of right IJ dual-lumen dialysis catheter in acceptable position with distal tip at the level of the SVC/atriocaval junction LUNGS: Lungs are not well inflated. Lungs are clear. There is mild prominence of the central pulmonary vasculature, consistent with pulmonary venous congestion. PLEURA: No pleural effusion or pneumothorax. HEART AND MEDIASTINUM: The cardiomediastinal silhouette is unremarkable. BONES AND SOFT TISSUES: No acute osseous lesion. Soft tissues are unremarkable. UPPER ABDOMEN: No free air under the diaphragm. IMPRESSION: No acute thoracic abnormality. Signed by: Dr. Chalo Doran M.D. on 12/14/2017 1:13 AM
[2017-12-14 06:44] LABS: BASOPHILS % 0.3 % (0.0-1.0); EOSINOPHILS # (AUTO) 0.2 (0.0-0.4); EOSINOPHILS % 2.4 % (0.0-6.0); HEMATOCRIT 20.8 % (38.2-49.6); HEMOGLOBIN 7.2 g/dL (14.0-18.0); LYMPHOCYTES % 15.3 % (18.0-39.1); MEAN CORPUSCULAR HEMOGLOBIN 30.3 pg (28-32); MEAN CORPUSCULAR HGB CONC 34.6 g/dL (31-35); MEAN CORPUSCULAR VOLUME 87.4 fL (81-99); MONOCYTES # (AUTO) 0.5 (0.2-0.8); MONOCYTES % 7.7 % (4.4-11.3); NEUTROPHILS # (AUTO) 4.9 (2.1-6.9); PLATELET COUNT 132 x10e3/uL (140-360); RED BLOOD COUNT 2.38 x10e6/uL (4.3-5.7); RED CELL DISTRIBUTION WIDTH 13.3 % (11.7-14.4)
[2017-12-14 07:01] LABS: ANION GAP 17.2 mmol/L (8-16); CALCIUM 7.5 mg/dL (8.4-10.2); CREATININE, SERUM 8.9 mg/dL (0.72-1.25); MAGNESIUM 1.5 MG/DL (1.3-2.1); POTASSIUM 4.2 mmol/L (3.5-5.1)
[2017-12-14] MEDS: PANTOPRAZOLE SOD 40 MG TABEC PO SCH ×2 (07:30→17:31)
[2017-12-14] MEDS: INSULIN REGULAR, HUMAN 100 UNIT/1 ML 3ML VIAL SQ SCH ×4 (07:30→20:22)
[2017-12-14] MEDS ORDERED: SODIUM CHLORIDE 0.9% 250ML 250 ML IV ONE (08:00)
[2017-12-14] MEDS: SEVELAMER CARBONATE 800 MG TAB PO SCH ×3 (08:00→17:33)
[2017-12-14 08:16] LABS: FOLATE 2.4 ng/mL (7.0-15.4)
[2017-12-14] MEDS ORDERED: BAYER ASPIRIN 81 MG PO SCH (09:00)
[2017-12-14] MEDS ORDERED: IRON SUCROSE 100 MG/5 ML VIAL IV SCH (09:00)
[2017-12-14] MEDS: ASPIRIN 81 MG CHEW TAB PO SCH (09:00)
[2017-12-14] MEDS: CARVEDILOL 12.5 MG TAB PO SCH ×2 (09:00→17:33)
[2017-12-14] MEDS: CHOLECALCIFEROL 1,000 UNIT TAB PO SCH (09:00)
[2017-12-14] MEDS: NIFEDIPINE CR 30 MG TAB PO SCH (09:00)
[2017-12-14] MEDS: FUROSEMIDE 40 MG TAB PO SCH (09:00)
[2017-12-14] MEDS ORDERED: SODIUM CHLORIDE 0.9% 1000ML 1,000 ML ONE (09:46)
[2017-12-14] MEDS ORDERED: HEPARIN SOD (PORCINE) 1000 UNIT/ML SDV IV PRN (11:00)
[2017-12-14] MEDS ORDERED: SODIUM CHLORIDE 0.9% 1000ML 1,000 ML IV PRN (11:00)
[2017-12-14] MEDS ORDERED: MANNITOL 25% 12.5GM/50 ML VIAL IV PRN (11:00)
[2017-12-14] MEDS ORDERED: MORPHINE SULFATE 2 MG/ML SYR IV STA (12:55)
[2017-12-14] MEDS: FOLIC ACID 1 MG TAB PO SCH (13:00)
--- NOTE | 2017-12-14 13:40 | Progress Note ---
DATE: December 14, 2017 RENAL PROGRESS NOTE SUBJECTIVE: Followed for end-stage renal disease. Patient was to have dialysis yesterday 1st treatment. However, dialysis catheter was not placed until late yesterday. He is to have his 1st dialysis treatment starting today. No nausea. No vomiting. No shortness of breath at this time. OBJECTIVE VITAL SIGNS: Have been noted and are stable. Blood pressure is 140/67, 69 pulse, afebrile. LUNGS: Clear to auscultation bilaterally. CARDIOVASCULAR: S1 and S2. No rub. ABDOMEN: Soft. Nontender. EXTREMITIES: No edema. LABS: BUN is 121, creatinine 8.9, potassium 4.2, bicarb 12. Hemoglobin is 7.2, hematocrit 20.8. IMPRESSION AND PLAN 1. End-stage renal disease. Continue dialysis. First treatment today. Will do another treatment tomorrow and then likely watch out for the weekend unless he needs 1 more treatment on Monday. From next week, he will a Monday, Monday, and Monday or Monday, , and Monday schedule. Will also make arrangements for outpatient dialysis. Tunneled catheter has been placed now. 2. Hypertension. The blood pressure is currently controlled. Continue current medications. 3. Anemia of chronic disease. Continue Epogen and IV iron and also transfuse 2 more units of PRBCs with dialysis. Workup for possible GI bleed is being done by GI. 4. Secondary hyperparathyroidism. PTH is within range. Continue to monitor. 5. Metabolic acidosis. Will get corrected with dialysis. 6. Hyperphosphatemia/mineral bone disease. Continue Renvela. Will make further recommendations. The phosphorus should also start to come down as the dialysis is started. Job#: [id number]
[2017-12-14] MEDS ORDERED: PEG (High)/E-LYTE SOLN 4,000 ML BTL PO ONE ×2 (14:15→15:00)
--- NOTE | 2017-12-14 18:02 | Diagnostic Imaging Report ---
PROCEDURE:US RETROPERITONEAL ( KIDNEY ). COMPARISON:None. INDICATIONS:EVALUATE SIZE, CYSTS TECHNIQUE: Thorpe-scale and color sonographic images of the bilateral kidneys and bladder where obtained in transverse and longitudinal planes. FINDINGS: RIGHT KIDNEY: 9.8 cm, cortex 1.6 cm Cysts: None Solid masses: None Stones: None Hydronephrosis: None Echogenicity: Normal LEFT KIDNEY: 9.5 cm, cortex 1.7 cm Cysts: None Solid masses: None Stones: 1.0 cm calcification in the left midpole with posterior shadowing. Hydronephrosis: None Echogenicity: Normal Bladder: Unremarkable Prostate: 6.4 x 4.8 x 5.1 cm (71.0 mL) CONCLUSION: The prostate is enlarged. Probable 1.0 cm nonobstructing stone in the left kidney. No hydronephrosis, solid mass, or cysts are identified. Dictated by: Javier Chan M.D. on 12/14/2017 at 18:04 Electronically approved by: Javier Chan M.D. on 12/14/2017 at 18:04
[2017-12-14] MEDS ORDERED: LIDOCAINE HCL 1% LOCAL INJ 20 ML VIAL ONE (19:01)
[2017-12-14] MEDS: HYDRALAZINE HCL 20 MG/ML VIAL IV PRN (20:32)
[2017-12-15] VITALS (7 sets, daily range): BP systolic 130–171; BP diastolic 60–91
[2017-12-15 06:07] LABS: BASOPHILS % 0.3 % (0.0-1.0); EOSINOPHILS % 0.3 % (0.0-6.0); HEMATOCRIT 27.3 % (38.2-49.6); HEMOGLOBIN 9.4 g/dL (14.0-18.0); LYMPHOCYTES # (AUTO) 0.9 (1.0-3.2); LYMPHOCYTES % 12.9 % (18.0-39.1); MEAN CORPUSCULAR HEMOGLOBIN 29.3 pg (28-32); MEAN CORPUSCULAR HGB CONC 34.4 g/dL (31-35); MONOCYTES # (AUTO) 0.5 (0.2-0.8); MONOCYTES % 6.8 % (4.4-11.3); NEUTROPHILS # (AUTO) 5.5 (2.1-6.9); NEUTROPHILS % 78.8 % (38.7-80.0); PLATELET COUNT 148 x10e3/uL (140-360); RED BLOOD COUNT 3.21 x10e6/uL (4.3-5.7); RED CELL DISTRIBUTION WIDTH 13.5 % (11.7-14.4)
[2017-12-15] MEDS ORDERED: CITRATE OF MAGNESIA 300ML BOTTLE PO ONE (06:30)
[2017-12-15 06:40] LABS: ANION GAP 17.5 mmol/L (8-16); CREATININE, SERUM 5.21 mg/dL (0.72-1.25); MAGNESIUM 1.4 MG/DL (1.3-2.1); PHOSPHORUS 4.6 MG/DL (2.3-4.7); POTASSIUM 3.5 mmol/L (3.5-5.1)
[2017-12-15] MEDS: PANTOPRAZOLE SOD 40 MG TABEC PO SCH ×2 (07:30→16:39)
[2017-12-15] MEDS: INSULIN REGULAR, HUMAN 100 UNIT/1 ML 3ML VIAL SQ SCH ×4 (07:30→20:11)
[2017-12-15] MEDS: SEVELAMER CARBONATE 800 MG TAB PO SCH ×3 (08:00→16:40)
[2017-12-15] MEDS ORDERED: SODIUM CHLORIDE 0.9% 1000ML 1,000 ML ONE (08:05)
[2017-12-15] MEDS: ASPIRIN 81 MG CHEW TAB PO SCH (08:14)
[2017-12-15] MEDS: CARVEDILOL 12.5 MG TAB PO SCH ×2 (09:00→16:39)
--- NOTE | 2017-12-15 09:06 | Progress Note ---
DATE: December 15, 2017 RENAL PROGRESS NOTE SUBJECTIVE: Followed for end-stage renal disease. Tolerating dialysis. Second dialysis treatment will be done today. The patient had first dialysis treatment yesterday. Apparently, started to have bleeding from the exit site of the tunneled dialysis catheter. Interventional radiology was called twice to come and fix the exit site, which was sutured and bleeding has subsided since then. The patient is to have 2nd dialysis treatment today. Tolerating dialysis without any problems. No nausea. No vomiting. No shortness of breath. Overall, the patient is improved. The patient also received packed red blood cells. Hemoglobin is stable today. OBJECTIVE VITAL SIGNS: Blood pressure 130/60, afebrile, respirations 18. LUNGS: Clear to auscultation bilaterally. CARDIOVASCULAR: S1 and S2. No rub. ABDOMEN: Soft and nontender. EXTREMITIES: No edema. LABS: Potassium 3.5, BUN 53, creatinine 5.21. Calcium is 8. Phosphorus 4.6. Magnesium 1.4. IMPRESSION AND PLAN 1. End-stage renal disease: Continue dialysis today, and then will likely watch over the weekend and place him on Monday, Monday and Monday scheduled for next week. Will also arrange outpatient dialysis. 2. Hypertension: Blood pressure is stable. Continue current medications. 3. Anemia of chronic disease: On Epogen and iron. The patient is status post packed red blood cells. Will also continue Epogen and check iron studies, and place him on intravenous iron as well. 4. Secondary hyperparathyroidism: PTH is within range. 5. Mineral bone disease: Calcium and phosphorus are within range. Job#: [id number] ELODIA
--- NOTE | 2017-12-15 12:39 | Diagnostic Imaging Report ---
Date and Time: 12/13/2017 Procedure: Tunneled hemodialysis catheter placement rotary veneer machine operator: Dr. Salazar Pre-operative diagnosis: End-stage renal disease Post-operative diagnosis: End-stage renal disease Conscious Sedation: Versed 1 mg and Fentanyl 50 mcg. The patient's heart rate and pulse oximetry were continuously monitored by the interventional radiology nurse. Blood pressure was monitored at 5 minute intervals. Additional Medications: Lidocaine 1%, lidocaine 1% with epinephrine for local anesthesia Fluoroscopy time: 1.2 minutes Dose-area Product: 349.9 cGycm2. Contrast used: None Estimated blood loss: Less than 10 cc Specimens: None Implants: 16 Hungarian, 19 cm tip-cuff tunneled hemodialysis catheter DISCUSSION: Informed consent was obtained and documented in the medical record after discussion of risks and benefits. The patient was placed in the supine position on the fluoroscopic table. Preliminary sonographic evaluation confirmed patency of the right internal jugular vein, evidenced by compressibility. The right neck and upper chest were prepped and draped in standard sterile fashion. 1% lidocaine was infiltrated into the skin and subcutaneous tissues for local anesthesia. Then under continuous sonographic guidance, a 21-gauge micropuncture needle was used to access the right internal jugular vein. A 0.0 1 8-in. wire was advanced centrally under fluoroscopic guidance. The needle was exchanged for a 5 Hungarian micropuncture sheath and the wire upsized to a 0.0 3 5-in. Amplatz Super Stiff wire which was advanced into the inferior vena cava. A suitable catheter exit site on the right upper chest was selected 2 fingerbreadths inferior to the clavicle. 1% lidocaine with epinephrine was infiltrated along the planned tract. A small stab incision was made. The catheter was then tunneled from the exit site on the right upper chest to the venotomy at the right lower neck, placing the retention cuff well into the subcutaneous tunnel. The tract was serially dilated. Then, a 16.5 Hungarian peel-away sheath was advanced over the wire under fluoroscopic guidance. The wire was removed. The catheter was advanced through the peel-away sheath which was broken and discarded. The catheter tip was positioned in the upper right atrium. Each lumen was tested and showed adequate bidirectional flow. The catheter lumens were each packed with 2000 units of heparin. The catheter was secured to the skin with monofilament nylon suture. The venotomy at the right lower neck was closed with tissue adhesive. Sterile dressings were applied. The patient tolerated the procedure well without immediate complication. FINDINGS: Patent right internal jugular vein. IMPRESSION: Successful placement of a 16 Hungarian, 19 7-m tip-cuff tunneled hemodialysis catheter by a right internal jugular approach. Signed by: Dr. Link Salazar M.D. on 12/14/2017 8:49 AM
--- NOTE | 2017-12-15 12:51 | Consultation ---
DATE OF CONSULTATION: December 15, 2017 PODIATRY CONSULTATION REASON FOR CONSULTATION: Right foot wound. HISTORY OF PRESENTING ILLNESS: This is a 62-year-old male with past medical history of type 2 diabetes, peripheral neuropathy, hypertensive nephropathy, stage 4 kidney disease and chronic kidney disease, who was admitted for progressive kidney disease and hemodialysis. Patient is well known to the podiatry service and underwent a transmetatarsal amputation approximately 2 months ago. The patient has not followed up in the outpatient office in approximately 2 to 3 weeks. Patient has been doing local wound care at home with Betadine wet-to-dry dressing changes, and patient relates that home health is changing the bandage on a daily basis. Patient has not been taking oral antibiotics while at home. No other pedal complaints at this time. PAST MEDICAL HISTORY: Type 2 diabetes, peripheral neuropathy, hypertension, chronic kidney disease stage 5, peripheral vascular disease. MEDICATIONS: Per the chart. ALLERGIES: NO KNOWN DRUG ALLERGIES. FAMILY HISTORY: Diabetes, hypertension. SOCIAL HISTORY: Patient denies smoking, drinking or any illicit drug usage. PHYSICAL EXAMINATION GENERAL: Alert and oriented x3. In no apparent distress. VITAL SIGNS: Today temperature 96.5, heart rate 75, respiratory rate 18, blood pressure 100% on room air. PROBLEM-FOCUSED LOWER EXTREMITY PHYSICAL EXAM VASCULAR: Dorsalis pedis and posterior tibial pulses are palpable. Capillary refill time is 3 to 4 seconds to distal stump site. Negative erythema, negative edema, negative warmth to the right foot. NEUROLOGICAL: Sensation is absent to light touch bilaterally. MUSCULOSKELETAL: Right transmetatarsal amputation, left partial 4th and 5th ray resections. DERMATOLOGICAL: A deep ulceration is noted to the central aspect of the patient's right foot transmetatarsal amputation site. It is approximately 2.5 cm x 2.5 cm. It is 80% granular with 20% fibrotic tissue. The wound edges are viable. The wound is not probed deep to the level of bone. There is negative erythema, edema or drainage at this time. LABS: White blood cell count is 6.9, hemoglobin 9.4, hematocrit 27.3, platelet count is 148. Sodium 143, potassium 3.5, chloride 105, creatinine 5.2, BUN 53, glucose 107. ASSESSMENT 1. Right foot ulcer status post right foot transmetatarsal amputation 2 months ago. 2. Type 2 diabetes with peripheral neuropathy. 3. End-stage renal disease. PLAN: Patient was seen and evaluated. Discussed the condition and treatment options with the patient in detail. At this time will commence with Betadine wet-to-dry dressing changes. A new wound culture was taken on this visit to determine if any colonization is occurring. Will also order x-rays to evaluate for osteomyelitis. The patient is stable to be discharged from the podiatry standpoint for outpatient wound care, but the podiatry service will continue to monitor as an inpatient. Job#: [id number] EV
[2017-12-15] MEDS ORDERED: SODIUM CHLORIDE 0.9% 500ML 500 ML ONE (12:56)
[2017-12-15] MEDS ORDERED: ONDANSETRON HCL INJ 2 MG/ML VIAL ONE (14:09)
[2017-12-15] MEDS ORDERED: PROPOFOL IV EMULSION 10 MG/ML 50 ML VIAL ONE (14:09)
[2017-12-15] MEDS ORDERED: GLUCAGON FOR INJ 1 MG VIAL ONE (14:09)
[2017-12-15] MEDS ORDERED: MIDAZOLAM HCL 2 MG/2 ML VIAL ONE (15:08)
[2017-12-15] MEDS ORDERED: FENTANYL CITRATE/PF 100MCG/2 ML INJ ONE (15:08)
--- NOTE | 2017-12-15 15:13 | Diagnostic Imaging Report ---
PROCEDURE:X-RAY RIGHT FOOT, COMPLETE COMPARISON:None. INDICATIONS:TRANSMETATARSAL AMPUTATION OF RT. FOOT several weeks ago FINDINGS: Decreased mineralization. The patient is status post transmetatarsal amputations of all toes at the mid level. There is cortical irregularity/erosion involving the distal aspects of the second, third, and fourth toes. No lytic or blastic lesions. Vascular calcifications. No acute, displaced fracture or dislocation. Moderate soft tissue swelling. CONCLUSION: Status post transmetatarsal amputation of all toes at the mid level, with findings in the second, third, and fourth metatarsal bones highly suggestive of osteomyelitis. Moderate soft tissue swelling. Luther Cortez M.D. Dictated by: Luther Cortez M.D. on 12/15/2017 at 15:15 Electronically approved by: Luther Cortez M.D. on 12/15/2017 at 15:15
--- NOTE | 2017-12-15 15:54 | Operative Report ---
DATE OF PROCEDURE: December 15, 2017 REFERRING PHYSICIAN: Dr. Carlos A Pham PROCEDURES PERFORMED 1. Esophagogastroduodenoscopy with fulguration of duodenal arteriovenous malformations. 2. Colonoscopy with polypectomy. INDICATIONS FOR EGD: Anemia. INDICATIONS FOR COLONOSCOPY: Anemia. MEDICATION: Patient was done under MAC. Please see anesthesiologist's note. PROCEDURE: With the patient in the left lateral decubitus position, the flexible fiberoptic Olympus gastroscope was introduced into the esophagus under direct visualization without any difficulty. There was some patchy erythema noted in the distal esophagus. The scope was then advanced with ease into the stomach, traversing a small sliding hiatal hernia. Mucosa overlying the antrum and the body revealed some patchy areas of erythema. Pylorus was of normal contour and shape. It was intubated with ease, and the scope was advanced all the way to the 2nd portion of the duodenum. Some scattered minute AVMs were noted in the proximal 2nd portion as well as in the duodenal bulb. The scope was subsequently withdrawn. A therapeutic scope was re-introduced into the esophagus and advanced to the aforementioned area, and fulguration of the AVMs was carried out with the 10-Congolese Gold Probe. The scope was subsequently withdrawn. Patient tolerated the procedure well. IMPRESSION 1. Mild distal esophagitis. 2. Small sliding hiatal hernia. 3. Gastritis, mild. 4. 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 PLAN: Follow H and H. Initiate Protonix 40 mg 1 p.o. a.c. b.i.d. The patient was then turned around. After adequate lubrication of the anal canal, a flexible fiberoptic Olympus colonoscope was inserted into the rectum with ease and advanced all the way to the cecum. The colon was excessively irritable and spastic and suboptimally visualized. The scope was then withdrawn slowly. Whatever was visualized of the mucosa overlying the cecum, ascending colon and transverse colon appeared to be within normal limits. There was some diverticular disease noted in the distal descending and the sigmoid. Two minute polyps were hot biopsied from the rectum. The scope was then retroflexed into the distal rectum, and small internal hemorrhoids were noted, none of which was actively bleeding. The scope was then straightened out. It was subsequently withdrawn. Patient tolerated the procedure well. IMPRESSION 1. Diverticulosis. 2. Rectal polyps times 2, hot biopsied. 3. Internal hemorrhoids, none actively bleeding. PLAN: Follow up histology. Follow H and H. Patient might benefit from a followup colonoscopy in 3 to 5 years. Job#: [id number] cc:CARLOS A PHAM MD
[2017-12-15] MEDS: FOLIC ACID 1 MG TAB PO SCH (16:39)
[2017-12-15] MEDS: IRON SUCROSE 100 MG in SODIUM CHLORIDE 0.9% 100 ML 100 ML IV SCH (16:39)
[2017-12-15] MEDS: FUROSEMIDE 40 MG TAB PO SCH (16:39)
[2017-12-15] MEDS: EPOETIN ALFA 10000 UNIT/ML VIAL SC SCH (16:39)
[2017-12-15] MEDS: OYST-CAL-D 500MG TABLET PO SCH (16:41)
[2017-12-16] VITALS (9 sets, daily range): BP systolic 109–176; BP diastolic 54–85
[2017-12-16] MEDS: HYDRALAZINE HCL 20 MG/ML VIAL IV PRN (00:12)
[2017-12-16 06:27] LABS: BASOPHILS % 0.2 % (0.0-1.0); EOSINOPHILS # (AUTO) 0.1 (0.0-0.4); EOSINOPHILS % 1.3 % (0.0-6.0); HEMATOCRIT 29.5 % (38.2-49.6); HEMOGLOBIN 10.2 g/dL (14.0-18.0); LYMPHOCYTES # (AUTO) 1.3 (1.0-3.2); LYMPHOCYTES % 15.7 % (18.0-39.1); MEAN CORPUSCULAR HEMOGLOBIN 29.8 pg (28-32); MEAN CORPUSCULAR HGB CONC 34.6 g/dL (31-35); MEAN CORPUSCULAR VOLUME 86.3 fL (81-99); MONOCYTES # (AUTO) 0.6 (0.2-0.8); MONOCYTES % 7.3 % (4.4-11.3); NEUTROPHILS # (AUTO) 6.4 (2.1-6.9); NEUTROPHILS % 74.9 % (38.7-80.0); PLATELET COUNT 162 x10e3/uL (140-360); RED BLOOD COUNT 3.42 x10e6/uL (4.3-5.7); RED CELL DISTRIBUTION WIDTH 13.6 % (11.7-14.4)
[2017-12-16 06:46] LABS: ANION GAP 14.6 mmol/L (8-16); CALCIUM 8.4 mg/dL (8.4-10.2); CREATININE, SERUM 4.04 mg/dL (0.72-1.25); POTASSIUM 3.6 mmol/L (3.5-5.1)
[2017-12-16] MEDS: INSULIN REGULAR, HUMAN 100 UNIT/1 ML 3ML VIAL SQ SCH ×4 (07:30→19:33)
[2017-12-16] MEDS ORDERED: NIFEDIPINE CR 30 MG TAB PO SCH (09:00)
[2017-12-16] MEDS: SEVELAMER CARBONATE 800 MG TAB PO SCH ×3 (09:26→17:19)
[2017-12-16] MEDS: ASPIRIN 81 MG CHEW TAB PO SCH (09:26)
[2017-12-16] MEDS: PANTOPRAZOLE SOD 40 MG TABEC PO SCH ×2 (09:26→17:19)
[2017-12-16] MEDS: OYST-CAL-D 500MG TABLET PO SCH ×2 (09:26→17:19)
[2017-12-16] MEDS: CARVEDILOL 12.5 MG TAB PO SCH ×2 (09:26→17:19)
[2017-12-16] MEDS: FUROSEMIDE 40 MG TAB PO SCH (09:26)
[2017-12-16] MEDS: FOLIC ACID 1 MG TAB PO SCH (09:26)
[2017-12-16] MEDS: NIFEDIPINE CR 30 MG TAB PO SCH (09:27)
[2017-12-16] MEDS: IRON SUCROSE 100 MG in SODIUM CHLORIDE 0.9% 100 ML 100 ML IV SCH (10:00)
--- NOTE | 2017-12-16 11:25 | Progress Note ---
DATE: December 16, 2017 SUBJECTIVE: This is a 62-year-old male with a past medical history of type 2 diabetes, peripheral neuropathy, hypertensive nephropathy, stage 4 kidney disease, who was admitted for hemodialysis. The patient is well known to the podiatry service for a right foot ulceration. He is approximately 8 weeks status post transmetatarsal amputation. No new pedal complaints at this time. No acute issues overnight. OBJECTIVE GENERAL: Alert and oriented times 3. No apparent distress. VITAL SIGNS: Today, temperature 97.2, heart rate 70, respiratory rate 18, blood pressure 176/85, pulse ox is 98% on room air. LOWER EXTREMITY PHYSICAL EXAMINATION VASCULAR: Dorsalis pedis and posterior tibial pulses are palpable. Capillary refill time is 3-4 seconds to the distal stump site. Negative erythema, edema or warmth to the patient's right foot. NEUROLOGICAL: Sensation is absent to light touch bilateral. MUSCULOSKELETAL: Right transmetatarsal amputation of the left partial 4th and 5th ray resections. DERMATOLOGICAL: Deep ulceration is noted to the central aspect of the patient's right transmetatarsal amputation site. The wound is approximately 2.5 cm x 2.5 cm. It is 80% granular and 20% fibrotic tissue. Wound edges continues to be viable. The wound does not probe deep to bone. Negative erythema, edema or local acute signs of infection at this time. LABS: White blood cell count 8.5, hemoglobin 10.2, hematocrit 29.5. Neutrophil percentage is 74. Glucose 137. X-RAYS: Two views were taken of the patient's right foot, which show status post transmetatarsal amputation of all the toes at the midlevel with findings in the 2nd, 3rd and 4th metatarsal bones suggestive of osteomyelitis. Moderate soft tissue swelling. ASSESSMENT 1. Right foot osteomyelitis: Status post transmetatarsal amputation 2 months ago. 2. Type 2 diabetes. 3. Peripheral neuropathy. 4. End-stage renal disease. 5. Chronic osteomyelitis. PLAN: The patient was seen and evaluated. Discussed condition and treatment options with the patient in detail. At this time, will continue with every other day Betadine wet-to-dry dressing changes. Wound culture to the right foot is pending at this time. X-ray findings are suggestive of chronic osteomyelitis, although the patient has no acute symptoms. Will continue to monitor with wound care. Once sensitivities return, will begin the patient on oral antibiotics, and return to the office for periodic wound debridements. The patient is stable to be discharged from the podiatry standpoint today. Per podiatry, will continue to monitor as an inpatient. Job#: [id number] RI
--- NOTE | 2017-12-16 11:57 | Progress Note ---
DATE: December 16, 2017 RENAL PROGRESS NOTE SUBJECTIVE: Followed for end-stage renal disease. Tolerating dialysis without any problems. No nausea. No vomiting. No shortness of breath. His dialysis outpatient chair time has been arranged. The patient is likely going to be discharged after dialysis today. His dialysis chair time is Monday, and Monday for next week. He is having a 3rd dialysis treatment today. OBJECTIVE VITAL SIGNS: Noted and are stable. Blood pressure is 152/84, pulse 70 and afebrile. LUNGS: Clear to auscultation bilaterally. CARDIOVASCULAR: S1 and S2. No rub. ABDOMEN: Soft and nontender. EXTREMITIES: No edema. LABS: Potassium 3.6, BUN 28, creatinine 4, sodium 140. Hemoglobin is 10.2. IMPRESSION AND PLAN 1. End-stage renal disease: Continue dialysis today and then Monday, and Monday. The patient from a renal standpoint can be discharged after dialysis today. 2. Hypertension: Blood pressure is stable. Continue to monitor. Continue current medications. 3. Anemia: Currently, stable after blood transfusion. Continue outpatient Epogen and intravenous iron. Job#: [id number] ELODIA
[2017-12-16] MEDS ORDERED: SODIUM CHLORIDE 0.9% 1000ML 0 ML ONE (12:12)
[2017-12-16] MEDS: METOCLOPRAMIDE HCL 10 MG/2ML VIAL IV SCH ×3 (12:20→20:23)
[2017-12-16] MEDS: CEFEPIME HCL 1 GM VIAL IV SCH (14:40)
--- NOTE | 2017-12-16 14:50 | Consultation ---
DATE OF CONSULTATION: REASON FOR CONSULTATION: Necrosis of the distal tip of the penis. Recommendation for antibiotics. This patient who is a 62-year-old white male who has a history of diabetes mellitus, hypertension, atherosclerotic disease, peripheral vascular disease, who has end-stage renal disease, on hemodialysis. He was admitted originally to [facility] for malfunction of his dialysis catheter. Patient during his stay had been seen by GI. He had an EGD. He also was noted with necrosis of the tip of his penis. An attempt to put a Sepulveda catheter was unsuccessful. Urology was consulted and was also unsuccessful. Infectious disease was consulted today. Patient is currently laying in bed comfortably. He has no complaints at the present time. Denies any fever or chills. This patient who is a 62 year old, who has chronic kidney disease, stage 5 with difficult and complicated medical history as mentioned above. He comes in to the emergency room on December 12, 2017, because he was not feeling well. He does have anemia. He received 3 units of packed red cells of blood. The patient during his stay had workup for anemia. He also was found to have necrosis of the tip of his penis. Patient denies any fever, chills, any pain, urgency, or frequency at the present time. PAST MEDICAL HISTORY: As mentioned above. Hypertension, diabetes mellitus, severe peripheral vascular disease, status post right toe amputation, and then TMA. PAST SURGICAL HISTORY: IV access for dialysis and then TMA and as mentioned above. ALLERGIES: NKA. SOCIAL HISTORY: There is no smoking, drug abuse or alcohol abuse currently. FAMILY HISTORY: Hypertension and diabetes. HOME MEDICATIONS: He is on nifedipine, carvedilol, vitamin D. Patient who was admitted and was seen by renal. He was seen by podiatry. PHYSICAL EXAMINATION GENERAL: He is currently alert and oriented. Does not seem in acute distress. VITALS: Stable. Currently afebrile. HEENT: Normocephalic and not icteric. NECK: Supple. No JVD. No lymphadenopathy or thyromegaly. CHEST: Clear bilaterally. HEART: S1 and S2. There is no murmur. ABDOMEN: Soft. Bowel sounds present. EXTREMITIES: No edema. : On the penis, there is necrosis at the tip of the penis about 1 cm. He had right TMA, which there is a wound. It is about 3 x 3 cm with some granular tissue at the base. There is no drainage at the present time. IMPRESSION 1. Dehiscence of the transmetatarsal amputation on the right foot: Status post amputation 2 months ago and now with dehiscence of the wound. Concern about osteomyelitis. The patient had an x-ray, which was consistent with that. I will recommend to do debridement and bone biopsy. Will discuss with Dr. Crowe. He needs to be on intravenous antibiotics. Will discussed with how to arrange that from the process of the tip of the penis. Neurology is following. 2. Anemia: Had gastrointestinal workup. Will follow with you. Job#: [id number] ELODIA
--- NOTE | 2017-12-16 23:03 | Consultation ---
DATE OF CONSULTATION: INITIAL VISIT SERVICE: Urology. ATTENDING: Dr. Uri Pham HISTORY OF PRESENT ILLNESS: This is a 62-year-old patient that presented with new end-stage renal disease. Patient was started on hemodialysis. Bladder ultrasound suggests that residual urine of about 350 mL. Attempt by nurse to place a Sepulveda catheter was not successful. Patient denied any previous instrumentation of the urethra. As far as voiding, he does complain about some hesitancy and there is no urinary stream. REVIEW OF SYSTEMS GENERAL: Denies fever or chills or weight loss. : Was mentioned earlier. ALL OTHER 12 SYSTEMS: He does have history of peripheral vascular disease as well. PAST MEDICAL HISTORY 1. Frequency of urination. 2. Renal failure. 3. Peripheral vascular disease. 4. Diabetes mellitus. 5. Right foot wound. 6. Spinal stenosis. MEDICATIONS: See MAR. ALLERGIES TO MEDICATIONS: NOT KNOWN. FAMILY HISTORY: Significant for hypertension and diabetes mellitus. PHYSICAL EXAM GENERAL: Patient appeared to be alert and oriented times 3. VITALS: Blood pressure 135/65, pulse 84, respirations 18, temperature 97.2. HEAD: Symmetric. EYES: Moving. NECK: No JVD or mass. CHEST: Clear. HEART: Regular. ABDOMEN: Soft. EXTERNAL GENITALIA: Some blood near the meatus. Necrosis of the tip of the penis. No testicular masses. RECTAL: Prostate enlarged +2 or 3. No definitive masses. Lower EXTREMITIES: Right foot wound. Moves all extremities. LABORATORY DATA: Reviewed. IMPRESSIONS 1. BPH with obstruction. 2. Question of urethral stricture. 3. Renal failure, acute probably on chronic. 4. Peripheral vascular disease. 5. Right foot wound. 6. Diabetes mellitus. 7. Spinal stenosis. 8. Dry necrosis of the tip of the penis, about 2 cm. PLAN: Planning to place a Sepulveda catheter. If this will not be possible, he may require cystoscopic procedure. Due to the planned dialysis at the present time, will delay these steps if needed. I ttied to place 16 Sepulveda - proximal stricture. Thank you for the consult. I will follow with you. Job#: [id number] CQ MTDD
[2017-12-17] VITALS (7 sets, daily range): BP systolic 118–155; BP diastolic 63–75
[2017-12-17 06:12] LABS: BASOPHILS % 0.2 % (0.0-1.0); EOSINOPHILS # (AUTO) 0.2 (0.0-0.4); EOSINOPHILS % 2.4 % (0.0-6.0); HEMATOCRIT 27.9 % (38.2-49.6); HEMOGLOBIN 9.5 g/dL (14.0-18.0); LYMPHOCYTES # (AUTO) 1.7 (1.0-3.2); LYMPHOCYTES % 16.6 % (18.0-39.1); MEAN CORPUSCULAR HEMOGLOBIN 29.6 pg (28-32); MEAN CORPUSCULAR HGB CONC 34.1 g/dL (31-35); MEAN CORPUSCULAR VOLUME 86.9 fL (81-99); MONOCYTES # (AUTO) 0.6 (0.2-0.8); MONOCYTES % 6.3 % (4.4-11.3); NEUTROPHILS # (AUTO) 7.4 (2.1-6.9); NEUTROPHILS % 73.7 % (38.7-80.0); PLATELET COUNT 143 x10e3/uL (140-360); RED BLOOD COUNT 3.21 x10e6/uL (4.3-5.7); RED CELL DISTRIBUTION WIDTH 13.2 % (11.7-14.4)
[2017-12-17 06:32] LABS: ANION GAP 13.5 mmol/L (8-16); CALCIUM 8.2 mg/dL (8.4-10.2); CREATININE, SERUM 5.1 mg/dL (0.72-1.25); MAGNESIUM 1.8 MG/DL (1.3-2.1); POTASSIUM 3.5 mmol/L (3.5-5.1)
[2017-12-17] MEDS: INSULIN REGULAR, HUMAN 100 UNIT/1 ML 3ML VIAL SQ SCH ×4 (07:30→20:05)
[2017-12-17] MEDS: METOCLOPRAMIDE HCL 10 MG/2ML VIAL IV SCH ×4 (07:57→19:33)
[2017-12-17] MEDS: PANTOPRAZOLE SOD 40 MG TABEC PO SCH ×2 (07:57→16:56)
[2017-12-17] MEDS: SEVELAMER CARBONATE 800 MG TAB PO SCH ×3 (07:57→16:56)
[2017-12-17] MEDS: FUROSEMIDE 40 MG TAB PO SCH (08:23)
[2017-12-17] MEDS: ASPIRIN 81 MG CHEW TAB PO SCH (08:23)
[2017-12-17] MEDS: FOLIC ACID 1 MG TAB PO SCH (08:23)
[2017-12-17] MEDS: TAMSULOSIN HCL 0.4 MG CAP PO SCH ×2 (08:23→16:24)
[2017-12-17] MEDS: OYST-CAL-D 500MG TABLET PO SCH ×2 (08:23→16:56)
[2017-12-17] MEDS: NIFEDIPINE CR 30 MG TAB PO SCH (09:00)
[2017-12-17] MEDS: CARVEDILOL 12.5 MG TAB PO SCH ×2 (09:00→16:56)
[2017-12-17] MEDS: IRON SUCROSE 100 MG in SODIUM CHLORIDE 0.9% 100 ML 100 ML IV SCH (09:05)
[2017-12-17] MEDS ORDERED: SODIUM CHLORIDE 0.9% 250ML 500 ML IV PRN (10:30)
[2017-12-17] MEDS ORDERED: ALBUMIN 25% 12.5GM 0.25 GM/ML BTL IV PRN (10:30)
[2017-12-17] MEDS ORDERED: SODIUM CHLORIDE 0.9% 1000ML 2,000 ML IV PRN (10:30)
[2017-12-17] MEDS ORDERED: MANNITOL 25% 12.5GM/50 ML VIAL IV PRN (10:30)
--- NOTE | 2017-12-17 12:00 | Progress Note ---
DATE: December 17, 2017 SUBJECTIVE: This is a 62-year-old male with a past medical history of type 2 diabetes, peripheral neuropathy, hypertensive neuropathy, stage 4 kidney disease, who was admitted for hemodialysis. The patient is well known to the podiatry service for a right foot ulceration and is 8 weeks status post transmetatarsal amputation. No new pedal complaints at this time. No acute issues overnight. OBJECTIVE GENERAL: Alert and oriented times 3. No apparent distress. VITAL SIGNS: Today, temperature is 97.6, heart rate 69, respiratory rate 16, blood pressure 118/65, pulse ox 100% on room air. LOWER EXTREMITY PHYSICAL EXAMINATION VASCULAR: Dorsalis pedis and posterior tibial pulses are palpable. Capillary refill time 3-4 seconds at the stump site. Negative erythema, edema or warmth is noted to the patient's right foot. Sensation is absent to light touch bilaterally. MUSCULOSKELETAL: Right transmetatarsal amputation and partial amputation of the left 4th and 5th rays. DERMATOLOGICAL: Deep ulcerations noted to the central aspect of the patient's transmetatarsal amputation site. The wound is approximately 2.5 cm x 2.5 cm, 80% granular and 20% fibrotic. Wound edges are viable. It does not probe deep to bone. Negative erythema, edema or local acute signs of infection. The wound is unchanged since previous visit. LABS: White blood cell count is 9.9, hemoglobin 9.5, hematocrit 27.9, and platelet count is 143,000. Sodium 137, potassium 3.5, chloride 99, CO2 28, BUN 35, creatinine 5.1. X-rays suggestive of chronic osteomyelitis of the patient's right foot. ASSESSMENT 1. Right foot osteomyelitis: Status post transmetatarsal amputation 2 months ago. 2. Type 2 diabetes with peripheral neuropathy. 3. End-stage renal disease. 4. Chronic osteomyelitis. PLAN: The patient was seen and evaluated. Discussed condition and treatment options with the patient in detail. At this time, will continue every other day dressing changes with Betadine wet-to-dry. Wound culture of the right foot is pending at this time. X-rays and findings were suggestive of chronic osteomyelitis. However, the patient has no acute symptoms. Will continue to monitor with wound care once sensitivities return. Will place the patient on IV antibiotics. The patient is stable to be discharged from the podiatry standpoint. Podiatry will continue to monitor as an inpatient. Job#: [id number] RI
[2017-12-17] MEDS: VANCOMYCIN 1GM/NS 250 ML 250 ML IV SCH (15:06)
[2017-12-17] MEDS: CEFEPIME HCL 1 GM VIAL IV SCH (16:23)
[2017-12-17] MEDS: HYDROCODONE/APAP 5MG-325MG TAB PO PRN (19:33)
[2017-12-18] VITALS: BP 160/78
[2017-12-18 05:20] VITALS: BP 168/82
[2017-12-18] MEDS: HYDRALAZINE HCL 20 MG/ML VIAL IV PRN (05:32)
[2017-12-18 06:14] LABS: BASOPHILS % 0.3 % (0.0-1.0); EOSINOPHILS # (AUTO) 0.2 (0.0-0.4); EOSINOPHILS % 2.4 % (0.0-6.0); HEMATOCRIT 29.1 % (38.2-49.6); HEMOGLOBIN 9.8 g/dL (14.0-18.0); LYMPHOCYTES # (AUTO) 1.5 (1.0-3.2); LYMPHOCYTES % 15.7 % (18.0-39.1); MEAN CORPUSCULAR HEMOGLOBIN 29.5 pg (28-32); MEAN CORPUSCULAR HGB CONC 33.7 g/dL (31-35); MEAN CORPUSCULAR VOLUME 87.7 fL (81-99); MONOCYTES # (AUTO) 0.6 (0.2-0.8); MONOCYTES % 6.6 % (4.4-11.3); PLATELET COUNT 157 x10e3/uL (140-360); RED BLOOD COUNT 3.32 x10e6/uL (4.3-5.7); RED CELL DISTRIBUTION WIDTH 13.3 % (11.7-14.4)
[2017-12-18 06:41] LABS: ANION GAP 13.6 mmol/L (8-16); CALCIUM 8.2 mg/dL (8.4-10.2); CREATININE, SERUM 3.74 mg/dL (0.72-1.25); MAGNESIUM 1.7 MG/DL (1.3-2.1); PHOSPHORUS 2.8 MG/DL (2.3-4.7); POTASSIUM 3.6 mmol/L (3.5-5.1)
[2017-12-18] MEDS: METOCLOPRAMIDE HCL 10 MG/2ML VIAL IV SCH ×4 (07:30→20:40)
[2017-12-18] MEDS: INSULIN REGULAR, HUMAN 100 UNIT/1 ML 3ML VIAL SQ SCH ×4 (07:30→20:40)
[2017-12-18] MEDS: PANTOPRAZOLE SOD 40 MG TABEC PO SCH ×2 (07:30→16:47)
[2017-12-18 08:00] VITALS: BP_SYST 100; BP_DIAS 62; BP_DIAS 64
[2017-12-18] MEDS: SEVELAMER CARBONATE 800 MG TAB PO SCH ×3 (08:00→16:48)
[2017-12-18] MEDS: NIFEDIPINE CR 30 MG TAB PO SCH (09:00)
[2017-12-18] MEDS: FUROSEMIDE 40 MG TAB PO SCH (09:00)
[2017-12-18] MEDS: TAMSULOSIN HCL 0.4 MG CAP PO SCH (09:00)
[2017-12-18] MEDS: CARVEDILOL 12.5 MG TAB PO SCH ×2 (09:00→16:48)
[2017-12-18] MEDS: FOLIC ACID 1 MG TAB PO SCH (09:00)
--- NOTE | 2017-12-18 09:11 | Progress Note ---
DATE: December 18, 2017 RENAL PROGRESS NOTE SUBJECTIVE: Followed for end-stage renal disease. Tolerating dialysis Monday, , and Monday. Monday dialysis could not be done completely. Patient, however, did have a dialysis session yesterday. Today, creatinine is better because the patient did have dialysis treatment yesterday. He is now on a Monday, , Monday schedule and there is no current need for dialysis today. Patient's dialysis chair time has already been arranged at the [facility]. No nausea, no vomiting. No shortness of breath. OBJECTIVE VITAL SIGNS: Noted and are stable. Blood pressure is 160s/80s, afebrile, and pulse 68. LUNGS: Clear to auscultation bilaterally. CARDIOVASCULAR: S1 and S2. No rub. ABDOMEN: Soft and nontender. EXTREMITIES: No edema. LABS: Have been reviewed. Potassium 3.6, BUN 20, creatinine 3.7. Hemoglobin is 9.8, hematocrit 29.1. IMPRESSIONS 1. End-stage renal disease: Continue dialysis Monday, , and Monday. From renal standpoint, patient can be discharged today and follow up in the Dialysis Clinic tomorrow. 2. Hypertension, stable. 3. Anemia, currently stable. 4. Penile necrotic abscess. PLAN: IV antibiotics as per infectious disease. Recommendation: Antibiotics can likely be arranged outpatient to be given with a home health nurse. Job#: [id number]
[2017-12-18] MEDS: OYST-CAL-D 500MG TABLET PO SCH ×2 (09:13→16:47)
[2017-12-18] MEDS ORDERED: SODIUM CHLORIDE 0.9% 500ML 500 ML ONE (10:37)
[2017-12-18] MEDS ORDERED: IOPAMIDOL 610MG/1ML 300 MG/ML VIAL IV ONE (12:03)
[2017-12-18] MEDS ORDERED: HEPARIN SOD (PORCINE) 1000 UNIT/ML SDV IV NR (14:30)
[2017-12-18] MEDS ORDERED: FENTANYL CITRATE/PF 100MCG/2 ML INJ ONE (14:47)
[2017-12-18] MEDS: EPOETIN ALFA 10000 UNIT/ML VIAL SC SCH (14:50)
[2017-12-18] MEDS: CEFEPIME HCL 1 GM VIAL IV SCH (14:50)
[2017-12-18 16:00] VITALS: BP 108/70
[2017-12-18] MEDS ORDERED: SEVOFLURANE INHAL SOLN 250 ML PEN BTL ONE (17:44)
[2017-12-18] MEDS ORDERED: PROPOFOL IV EMULSION 10 MG/ML 20 ML VIAL ONE (17:44)
[2017-12-18] MEDS ORDERED: ONDANSETRON HCL INJ 2 MG/ML VIAL ONE (17:44)
[2017-12-18] MEDS ORDERED: LIDOCAINE HCL 2% LOCAL INJ 5 ML SDV VIAL INJ ONE (17:44)
--- NOTE | 2017-12-18 18:45 | Operative Report ---
DATE OF PROCEDURE: December 18, 2017 PREOPERATIVE DIAGNOSES 1. Acute on chronic renal failure. 2. Urethral stricture. 3. Necrosis of the tip of the penis. POSTOPERATIVE DIAGNOSES 1. Acute on chronic renal failure. 2. Urethral stricture. Necrosis of the tip of the penis. OPERATION PERFORMED: 1. Cystoscopy and urethral dilation. 2. Bilateral retrograde pyelograms under fluoroscopic control. 3. Interpretation of x-ray. Radiologist not present. 4. Supervision of fluoroscopy. Radiologist not present. 5. Debridement of necrotic tissue from the tip of the glans penis. BACK FEEDER [place]Y[employer] LAYUP LINE: None. ANESTHESIA: General. CLINICAL INDICATION NOTE: [id number] patient presented with renal failure presently on dialysis. He did have necrosis of the tip of the penis. The patient was brought for assessment of stricture as well as upper tracts and debridement. Procedure was discussed with the patient. Potential benefits and complication discussed, explained and accepted. DESCRIPTION OF PROCEDURE AND FINDINGS: After proper level of anesthesia was achieved, the patient was placed in lithotomy position, prepped and draped in sterile fashion. Urethra appeared to be quite narrow and dilated to 28-Beninese. Following this, a cystoscopy was done demonstrating blocking prostate. Bladder outlet is obstructed by the large prostate. Bladder is trabeculated. Both ureteral orifices were identified. Bilateral retrograde ureteral pyelograms were done under fluoroscopic control. No intrinsic lesions were identified bilaterally. There is question of irregular area in the lower pole on the left kidney. Following this the tip of the necrotic dry tissue on the penis was excised. A 22-Beninese Sepulveda catheter was then inserted. Patient was transferred in satisfactory condition to recovery room. Job#: [id number]
[2017-12-18 20:00] VITALS: BP 148/75
[2017-12-18] MEDS: HYDROCODONE/APAP 5MG-325MG TAB PO PRN (22:26)
[2017-12-19] VITALS (7 sets, daily range): BP systolic 132–171; BP diastolic 68–87
[2017-12-19] MEDS: HYDRALAZINE HCL 20 MG/ML VIAL IV PRN (00:49)
[2017-12-19 06:09] LABS: BASOPHILS % 0.2 % (0.0-1.0); EOSINOPHILS # (AUTO) 0.2 (0.0-0.4); EOSINOPHILS % 1.2 % (0.0-6.0); HEMATOCRIT 29.6 % (38.2-49.6); HEMOGLOBIN 10.1 g/dL (14.0-18.0); LYMPHOCYTES # (AUTO) 1.4 (1.0-3.2); MEAN CORPUSCULAR HEMOGLOBIN 30.2 pg (28-32); MEAN CORPUSCULAR HGB CONC 34.1 g/dL (31-35); MEAN CORPUSCULAR VOLUME 88.6 fL (81-99); MONOCYTES # (AUTO) 0.8 (0.2-0.8); MONOCYTES % 6.1 % (4.4-11.3); NEUTROPHILS # (AUTO) 10.4 (2.1-6.9); NEUTROPHILS % 80.8 % (38.7-80.0); PLATELET COUNT 187 x10e3/uL (140-360); RED BLOOD COUNT 3.34 x10e6/uL (4.3-5.7); RED CELL DISTRIBUTION WIDTH 13.4 % (11.7-14.4)
[2017-12-19 06:33] LABS: ANION GAP 13.9 mmol/L (8-16); CALCIUM 8.6 mg/dL (8.4-10.2); CREATININE, SERUM 5.06 mg/dL (0.72-1.25); POTASSIUM 3.9 mmol/L (3.5-5.1)
[2017-12-19] MEDS: METOCLOPRAMIDE HCL 10 MG/2ML VIAL IV SCH ×4 (07:30→20:31)
[2017-12-19] MEDS: INSULIN REGULAR, HUMAN 100 UNIT/1 ML 3ML VIAL SQ SCH ×4 (07:30→20:15)
[2017-12-19] MEDS: SEVELAMER CARBONATE 800 MG TAB PO SCH ×3 (08:00→17:32)
[2017-12-19] MEDS: CARVEDILOL 12.5 MG TAB PO SCH ×2 (09:00→17:32)
[2017-12-19] MEDS: NIFEDIPINE CR 30 MG TAB PO SCH (09:00)
--- NOTE | 2017-12-19 09:08 | Progress Note ---
DATE: December 19, 2017 RENAL PROGRESS NOTE SUBJECTIVE: Followed for end-stage renal disease. Tolerating dialysis and being done on Monday, and Monday. Being evaluated to go to [facility] in [facility]. If he is approved, then he will be on a Monday, Monday and Monday schedule there. The patient is going to do a 2-1/2 run dialysis treatment today and will run again tomorrow. No nausea. No vomiting. No shortness of breath. Seen on dialysis and tolerating. OBJECTIVE VITAL SIGNS: Noted. Blood pressure is 132/68 and afebrile, and 97.9 temperature, pulse 78, respirations 20. LUNGS: Clear to auscultation bilaterally. CARDIOVASCULAR: S1 and S2. No rub. ABDOMEN: Soft and nontender. EXTREMITIES: No edema. LABS: Hemoglobin 10.1, hematocrit 29.6. Chemistry: Sodium 134, potassium 3.9, BUN 28, creatinine 5.1. IMPRESSION AND PLAN 1. End-stage renal disease: Continue dialysis today, and then will place him on a Monday, Monday and Monday schedule from tomorrow. 2. Hypertension: Blood pressure is controlled. 3. Anemia of chronic disease: Stable H and H. 4. Osteomyelitis of right lower extremity: Forefoot infection. Intravenous antibiotics and wound care per infectious disease. The patient likely will be transferred to [place] in the next 24-48 hours. Job#: [id number] ELODIA
[2017-12-19] MEDS: TAMSULOSIN HCL 0.4 MG CAP PO SCH (11:00)
[2017-12-19] MEDS: FUROSEMIDE 40 MG TAB PO SCH (11:00)
[2017-12-19] MEDS: OYST-CAL-D 500MG TABLET PO SCH ×2 (11:00→17:32)
[2017-12-19] MEDS: FOLIC ACID 1 MG TAB PO SCH (11:00)
[2017-12-19] MEDS: PANTOPRAZOLE SOD 40 MG TABEC PO SCH ×2 (12:17→17:32)
[2017-12-19] MEDS: VANCOMYCIN 1GM/NS 250 ML 250 ML IV SCH (13:30)
--- NOTE | 2017-12-19 13:39 | Diagnostic Imaging Report ---
PROCEDURE:CHEST XRAY LINE PLACEMENT TECHNIQUE:Portable AP chest INDICATION:Line placement COMPARISON:None. FINDINGS: Right internal jugular dialysis catheter with tips at the atrial caval junction and low SVC. Left internal jugular central venous catheter with tip at atriocaval junction. Clear lungs. No pneumothorax. No pleural effusion. Normal heart size, mediastinal contour and pulmonary vasculature. Intact skeleton. CONCLUSION: 1. Left internal jugular central venous catheter tip atrial caval junction. 2. Right internal jugular tunneled dialysis catheter tips at the SVC. 3. No acute abnormality. Dictated by: Alec Macias M.D. on 12/19/2017 at 13:42 Electronically approved by: Alec Macias M.D. on 12/19/2017 at 13:42
--- NOTE | 2017-12-19 13:53 | Diagnostic Imaging Report ---
Non-tunneled Central Venous Catheter Placement 12/19/2017 Pre-Procedure Diagnosis: Infection requiring long-term antibiotics. Post-procedure Diagnosis:Infection requiring long-term antibiotics. Assistant Hall Director: Moises Macias Field Operations Farm Manager: None Sedation: None. 1% lidocaine local anesthesia. Estimate blood loss: None Blood administered: None Complications: None Implants/Grafts: 20 cm 7-Somali 3 lumen CVC Specimen: None Procedure: Informed consent was obtained and the patient positioned supine in the ICU. A timeout was performed, followed by preliminary ultrasound of the left internal jugular vein (see findings below). The left neck was prepped and draped in standard fashion. Using real-time ultrasound guidance a 21 gauge vascular needle was used to access the left internal jugular vein. An image was stored in the electronic medical record. A wire was advanced while monitoring the patient's cardiac rhythm and the needle exchanged for a non-tunneled central venous catheter using standard Salinger technique. At the end of the procedure the catheter was flushed, secured to the skin and a sterile dressing applied. The patient tolerated the procedure well and without immediate complication. Findings: Patent left internal jugular vein as demonstrated by normal ultrasound compressibility. Impression: Successful placement of a non-tunneled left internal jugular central venous catheter using ultrasound guidance. This report was generated with voice-recognition technology. Errors in test kitchen home economist can occur. Please interpret accordingly and contact a radiologist if there are any questions regarding the report. Signed by: Dr. Alec Macias M.D. on 12/19/2017 1:50 PM
--- NOTE | 2017-12-19 13:53 | Diagnostic Imaging Report ---
Non-tunneled Central Venous Catheter Placement 12/19/2017 Pre-Procedure Diagnosis: Infection requiring long-term antibiotics. Post-procedure Diagnosis:Infection requiring long-term antibiotics. Electrician Office: Moises Macias Educational Assistant: None Sedation: None. 1% lidocaine local anesthesia. Estimate blood loss: None Blood administered: None Complications: None Implants/Grafts: 20 cm 7-Guyanese 3 lumen CVC Specimen: None Procedure: Informed consent was obtained and the patient positioned supine in the ICU. A timeout was performed, followed by preliminary ultrasound of the left internal jugular vein (see findings below). The left neck was prepped and draped in standard fashion. Using real-time ultrasound guidance a 21 gauge vascular needle was used to access the left internal jugular vein. An image was stored in the electronic medical record. A wire was advanced while monitoring the patient's cardiac rhythm and the needle exchanged for a non-tunneled central venous catheter using standard Salinger technique. At the end of the procedure the catheter was flushed, secured to the skin and a sterile dressing applied. The patient tolerated the procedure well and without immediate complication. Findings: Patent left internal jugular vein as demonstrated by normal ultrasound compressibility. Impression: Successful placement of a non-tunneled left internal jugular central venous catheter using ultrasound guidance. This report was generated with voice-recognition technology. Errors in drosophere operator can occur. Please interpret accordingly and contact a radiologist if there are any questions regarding the report. Signed by: Dr. Alec Macias M.D. on 12/19/2017 1:50 PM
--- NOTE | 2017-12-19 13:53 | Diagnostic Imaging Report ---
Non-tunneled Central Venous Catheter Placement 12/19/2017 Pre-Procedure Diagnosis: Infection requiring long-term antibiotics. Post-procedure Diagnosis:Infection requiring long-term antibiotics. Review Manager: Moises Macias Regional Business Development Manager: None Sedation: None. 1% lidocaine local anesthesia. Estimate blood loss: None Blood administered: None Complications: None Implants/Grafts: 20 cm 7-Japanese 3 lumen CVC Specimen: None Procedure: Informed consent was obtained and the patient positioned supine in the ICU. A timeout was performed, followed by preliminary ultrasound of the left internal jugular vein (see findings below). The left neck was prepped and draped in standard fashion. Using real-time ultrasound guidance a 21 gauge vascular needle was used to access the left internal jugular vein. An image was stored in the electronic medical record. A wire was advanced while monitoring the patient's cardiac rhythm and the needle exchanged for a non-tunneled central venous catheter using standard Salinger technique. At the end of the procedure the catheter was flushed, secured to the skin and a sterile dressing applied. The patient tolerated the procedure well and without immediate complication. Findings: Patent left internal jugular vein as demonstrated by normal ultrasound compressibility. Impression: Successful placement of a non-tunneled left internal jugular central venous catheter using ultrasound guidance. This report was generated with voice-recognition technology. Errors in meat stuffer can occur. Please interpret accordingly and contact a radiologist if there are any questions regarding the report. Signed by: Dr. Alec Macias M.D. on 12/19/2017 1:50 PM
[2017-12-19] MEDS: CEFEPIME HCL 1 GM VIAL IV SCH (15:48)
[2017-12-20] VITALS: BP 142/67
[2017-12-20 04:00] VITALS: BP 162/79
[2017-12-20] MEDS: HYDRALAZINE HCL 20 MG/ML VIAL IV PRN (04:37)
[2017-12-20 06:44] LABS: BASOPHILS % 0.3 % (0.0-1.0); EOSINOPHILS # (AUTO) 0.2 (0.0-0.4); EOSINOPHILS % 1.9 % (0.0-6.0); HEMATOCRIT 27.4 % (38.2-49.6); LYMPHOCYTES # (AUTO) 1.4 (1.0-3.2); LYMPHOCYTES % 12.2 % (18.0-39.1); MEAN CORPUSCULAR HEMOGLOBIN 29.4 pg (28-32); MEAN CORPUSCULAR HGB CONC 32.8 g/dL (31-35); MEAN CORPUSCULAR VOLUME 89.5 fL (81-99); MONOCYTES # (AUTO) 0.8 (0.2-0.8); MONOCYTES % 7.3 % (4.4-11.3); NEUTROPHILS # (AUTO) 8.9 (2.1-6.9); NEUTROPHILS % 77.6 % (38.7-80.0); PLATELET COUNT 158 x10e3/uL (140-360); RED BLOOD COUNT 3.06 x10e6/uL (4.3-5.7); RED CELL DISTRIBUTION WIDTH 13.8 % (11.7-14.4)
[2017-12-20 06:54] LABS: ANION GAP 11.9 mmol/L (8-16); CALCIUM 8.4 mg/dL (8.4-10.2); CREATININE, SERUM 4.13 mg/dL (0.72-1.25); POTASSIUM 3.9 mmol/L (3.5-5.1)
[2017-12-20] MEDS: INSULIN REGULAR, HUMAN 100 UNIT/1 ML 3ML VIAL SQ SCH ×2 (07:30→11:30)
[2017-12-20] MEDS: SEVELAMER CARBONATE 800 MG TAB PO SCH ×2 (07:49→12:09)
[2017-12-20] MEDS: PANTOPRAZOLE SOD 40 MG TABEC PO SCH (07:49)
[2017-12-20] MEDS: METOCLOPRAMIDE HCL 10 MG/2ML VIAL IV SCH ×2 (07:49→11:30)
[2017-12-20] MEDS: FOLIC ACID 1 MG TAB PO SCH (08:43)
[2017-12-20] MEDS: FUROSEMIDE 40 MG TAB PO SCH (08:43)
[2017-12-20] MEDS: OYST-CAL-D 500MG TABLET PO SCH (08:43)
[2017-12-20] MEDS: TAMSULOSIN HCL 0.4 MG CAP PO SCH (08:43)
[2017-12-20] MEDS: CARVEDILOL 12.5 MG TAB PO SCH (08:43)
[2017-12-20] MEDS: NIFEDIPINE CR 30 MG TAB PO SCH (08:43)
[2017-12-20 09:00] VITALS: BP 168/71
[2017-12-20 09:10] VITALS: BP 168/71
--- NOTE | 2017-12-20 09:46 | Progress Note ---
DATE: December 20, 2017 RENAL PROGRESS NOTE SUBJECTIVE: Followed for end-stage renal disease on dialysis Monday, Monday and Monday here at [facility]. Outpatient schedule will be Monday, and Monday at [facility]. The patient is awaiting approval to see whether or not he will qualify for [facility] since he has a right lower extremity wound, which will require IV antibiotics extermination inspector as well as wound care. No nausea. No vomiting. No shortness of breath. Seen at the start of dialysis, tolerating without any problems. OBJECTIVE VITAL SIGNS: Noted. Blood pressure 160s over 70s, 73 pulse, 18 respirations. LUNGS: Clear to auscultation bilaterally. CARDIOVASCULAR: S1 and S2. No rub. ABDOMEN: Soft and nontender. EXTREMITIES: No edema. LABS: Hemoglobin 9, hematocrit 27.4. Potassium 3.9, BUN 23, creatinine 4.1. IMPRESSION AND PLAN 1. End-stage renal disease. Continue dialysis Monday, Monday and Monday over here. 2. Hypertension. Blood pressure is more or less stable. Will continue current medications. May add either ROLAND inhibitor or ARB for better blood pressure control and for cardioprotection. 3. Anemia of chronic disease, stable. Continue to monitor closely. Job#: [id number]
[2017-12-20] MEDS ORDERED: VALSARTAN 80 MG TAB PO SCH (10:00)
[2017-12-20] MEDS ORDERED: CIPRO500 MG PO (13:13)
[2017-12-20] MEDS ORDERED: VANCOMYCIN HCL500 MG IV (13:15)
[2017-12-20] MEDS ORDERED: VANCOMYCIN HCL1 GM IV (13:15)
[2017-12-20 14:10] VITALS: BP 141/80
[2017-12-20] MEDS: CEFEPIME HCL 1 GM VIAL IV SCH (14:32)
--- NOTE | 2017-12-21 15:24 | Discharge Summary ---
ADMISSION DIAGNOSES 1. Acute blood loss anemia. 2. Upper gastrointestinal bleed. 3. End-stage renal disease, on dialysis. 4. Hypertension, complicated by end-stage renal disease. 5. Type-2 diabetes with peripheral artery disease. 6. Peripheral artery disease with the history of right foot transmetatarsal amputation. DISCHARGE DIAGNOSES 1. Acute blood loss anemia. 2. Upper gastrointestinal bleed. 3. End-stage renal disease, on dialysis. 4. Hypertension, complicated by end-stage renal disease. 5. Type-2 diabetes with peripheral artery disease. 6. Peripheral artery disease with the history of right foot transmetatarsal amputation. 7. Penile wound, status post debridement. 8. Urinary retention. 9. BPH. 10. Diverticulosis. 11. Esophagitis. 12. Gastritis. 13. Small hiatal hernia. 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 HISTORY: Patient has a history of hypertension, type-2 diabetes, CKD 5, PAD with TMA on the right foot earlier this year, surgical history of right TMA plus cholecystectomy. HOSPITAL COURSE: A 62-year-old male presents with CKD 4 about a year ago, which has now progressed to stage 5. He also had a right TMA about 6 weeks prior. He required dialysis during the last hospitalization, but improved and did not meet outpatient dialysis. He now presents with end-stage renal disease. On admission, patient had a hemodialysis catheter placed and was started on dialysis. Patient was also found to have a hemoglobin of 5.5 and a positive fecal occult test. Patient was transfused a total of 5 units. He had an EGD and a colonoscopy. EGD showed mild distal esophagitis, small sliding hiatal hernia, mild gastritis, duodenal AVM. Colonoscopy showed diverticulosis, rectal polyp, and internal hemorrhoids nonbleeding. Patient was started on Protonix b.i.d. and GI continued to follow. Podiatry was also consulted since he had a recent surgery. An x-ray of the chest shows no acute abnormalities. Renal ultrasound showed enlarged prostate, no hydronephrosis identified. X-ray of the foot showed status post TMA with findings in the 2nd, 3rd, and 4th metatarsal bones highly suggestive of OM, moderate soft tissue swelling. ID was consulted. He started the patient on cefepime and vancomycin. Wound cultures came back negative. Urine culture was negative. A couple of days into hospitalization, the patient was having urinary retention over 200 mL in the bladder. Upon assessment of the penis, nurse noticed that the patient had necrotic tissue at the tip of the penis. The patient denies that this happened prior to hospitalization. He says it happened overnight, but it is very obvious that it was a preadmission issue. Urology was then consulted, who did a cystoscopy and placed a Sepulveda. Patient will transfer to [facility] for long-term antibiotics, wound care, and will be followed by urology, podiatry, ID, and internal medicine. He agrees with the plan. Dictated By: Alicia Dumont NP CARLOS A VILLANUEVA MD Job#: [id number] CQ
== END 2017-12-20 16:51 | DRG 673 ==
LOC: ER 15:21 → MED/SURG2 20:30
PROVIDERS: ADMIT Internal Medicine; ATTEND Internal Medicine
PROC: 30250N1 (ICD-10-PCS; 2017-12-12)
PROC: 0JH63XZ Insertion of Tunneled Vascular Access Device into Chest Subcutaneous Tissue and Fascia, Percutaneous Approach (ICD-10-PCS; 2017-12-13)
PROC: 02H633Z Insertion of Infusion Device into Right Atrium, Percutaneous Approach (ICD-10-PCS; 2017-12-13)
PROC: 5A1D70Z Performance of Urinary Filtration, Intermittent, Less than 6 Hours Per Day (ICD-10-PCS; principal; 2017-12-14)
PROC: 0DBP8ZZ Excision of Rectum, Via Natural or Artificial Opening Endoscopic (ICD-10-PCS; 2017-12-15)
PROC: 0W3P8ZZ Control Bleeding in Gastrointestinal Tract, Via Natural or Artificial Opening Endoscopic (ICD-10-PCS; 2017-12-15)
PROC: 0VBSXZZ Excision of Penis, External Approach (ICD-10-PCS; 2017-12-18)
PROC: 0T7D8ZZ Dilation of Urethra, Via Natural or Artificial Opening Endoscopic (ICD-10-PCS; 2017-12-18)
PROC: BT141ZZ Fluoroscopy of Kidneys, Ureters and Bladder using Low Osmolar Contrast (ICD-10-PCS; 2017-12-18)
PROC: 02HV33Z Insertion of Infusion Device into Superior Vena Cava, Percutaneous Approach (ICD-10-PCS; 2017-12-19)
DX: I12.0 Hypertensive chronic kidney disease with stage 5 chronic kidney disease or end stage renal disease (principal); N18.6 End stage renal disease; D62 Acute posthemorrhagic anemia; K92.1 Melena; N13.8 Other obstructive and reflux uropathy; M86.671 Other chronic osteomyelitis, right ankle and foot; N25.81 Secondary hyperparathyroidism of renal origin; E87.2 Acidosis; E87.1 Hypo-osmolality and hyponatremia; K31.819 Angiodysplasia of stomach and duodenum without bleeding; E11.22 Type 2 diabetes mellitus with diabetic chronic kidney disease; N40.1 Benign prostatic hyperplasia with lower urinary tract symptoms; N35.9 Urethral stricture, unspecified; E11.621 Type 2 diabetes mellitus with foot ulcer; L97.511 Non-pressure chronic ulcer of other part of right foot limited to breakdown of skin; E11.40 Type 2 diabetes mellitus with diabetic neuropathy, unspecified; E11.51 Type 2 diabetes mellitus with diabetic peripheral angiopathy without gangrene; Z79.4 Long term (current) use of insulin; K20.9 Esophagitis, unspecified; K44.9 Diaphragmatic hernia without obstruction or gangrene; K29.70 Gastritis, unspecified, without bleeding; K57.30 Diverticulosis of large intestine without perforation or abscess without bleeding; K62.1 Rectal polyp; K64.8 Other hemorrhoids; N48.21 Abscess of corpus cavernosum and penis; T87.81 Dehiscence of amputation stump; E11.69 Type 2 diabetes mellitus with other specified complication; Z79.82 Long term (current) use of aspirin; D63.1 Anemia in chronic kidney disease; E83.39 Other disorders of phosphorus metabolism
CPT/HCPCS: 36415; 36556; 36565; 45378; 45384; 71045; 74420; 74470; 76770; 76937; 77001; 80048; 80053; 82270; 82306; 82607; 82728; 82746; 82948; 83540; 83735; 83880; 83970; 84100; 84132; 84443; 84466; 84484; 85025; 85610; 85730; 86704; 86707; 86803; 86850; 86900; 86920; 87071; 87086; 87186; 87205; 87340; 88305; 90962; 93005; 99284; C1750; J0360; J0692; J1610; J1644; J1756; J2001; J2150; J2250; J2270; J2405; J2765; J3370; J7030; J7040; J7050; P9016; Q4081

== ENCOUNTER → 2018-05-22 | Day surgery (SDC) | payer OTHER ==
[~2018-05-22] MED LIST changes: +CEFAZOLIN SOD 1 GM VIAL ONE; +CIPRO500 MG PO; +FENTANYL CITRATE/PF 100MCG/2 ML INJ ONE; +GELATIN SPONGE 12-7MM ONE; +HEPARIN SOD (PORCINE) 1000 UNIT/ML 30ML ONE; +HEPARIN SOD (PORCINE) 5,000 UNIT/ML VIAL ONE; +LEVEMIR100 UNIT/1 SQ; +LIDOCAINE HCL 2% LOCAL INJ 5 ML SDV VIAL INJ ONE; +PROPOFOL IV EMULSION 10 MG/ML 20 ML VIAL ONE; +SEVOFLURANE INHAL SOLN 250 ML PEN BTL ONE; +SODIUM CHLORIDE 0.9% 100 ML 0 ML ONE; +SODIUM CHLORIDE 0.9% 500ML 500 ML ONE; +THROMBIN FOR SOLN 5,000 UNIT VIAL ONE; +VANCOMYCIN HCL500 MG IV
[2018-05-22 06:42] LABS: BASOPHILS % 0.4 % (0.0-1.0); EOSINOPHILS # (AUTO) 0.1 (0.0-0.4); EOSINOPHILS % 1.8 % (0.0-6.0); HEMATOCRIT 27.5 % (38.2-49.6); HEMOGLOBIN 8.9 g/dL (14.0-18.0); LYMPHOCYTES # (AUTO) 1.4 (1.0-3.2); LYMPHOCYTES % 18.1 % (18.0-39.1); MEAN CORPUSCULAR HEMOGLOBIN 35.5 pg (28-32); MEAN CORPUSCULAR HGB CONC 32.4 g/dL (31-35); MEAN CORPUSCULAR VOLUME 109.6 fL (81-99); MONOCYTES # (AUTO) 0.5 (0.2-0.8); MONOCYTES % 5.8 % (4.4-11.3); NEUTROPHILS # (AUTO) 5.7 (2.1-6.9); PLATELET COUNT 214 x10e3/uL (140-360); RED BLOOD COUNT 2.51 x10e6/uL (4.3-5.7); RED CELL DISTRIBUTION WIDTH 20.2 % (11.7-14.4)
[2018-05-22 06:57] LABS: ANION GAP 15.2 mmol/L (8-16); CALCIUM 7.5 mg/dL (8.4-10.2); CREATININE, SERUM 6.11 mg/dL (0.72-1.25); POTASSIUM 4.2 mmol/L (3.5-5.1)
[2018-05-22 07:02] LABS: INR 1.15; PROTHROMBIN TIME 15.7 seconds (11.9-14.5)
[2018-05-22 07:03] LABS: PARTIAL THROMBOPLASTIN TIME 30.6 seconds (23.8-35.5)
--- NOTE | 2018-05-22 10:41 | Operative Report ---
DATE OF PROCEDURE: May 22, 2018 PREOPERATIVE DIAGNOSIS: End-stage renal disease. POSTOPERATIVE DIAGNOSIS: End-stage renal disease. PROCEDURE: Right arm primary brachiocephalic arteriovenous fistula. MONOMER PURIFICATION OPERATOR: None. ANESTHESIA: General. INDICATIONS AND FINDINGS: Patient is a 63-year-old male with end-stage renal disease. Needs access for long-term hemodialysis. At surgery, the patient's radial pulse was not palpable. There was a good pulse in the brachial artery, and there was a large cephalic vein, which was used for the fistula. At the end of the procedure, there was a palpable thrill over the fistula and a palpable pulse in the brachial artery distal to the fistula. TECHNIQUE: After adequate general anesthesia with the patient in the supine position, the right arm was prepped and draped in a sterile fashion with Newton solution. A transverse incision was made in the right antecubital area and carried down through subcutaneous tissue. The cephalic vein was identified and dissected free and controlled with a vessel loop. It was dissected free proximally and distally as much as possible. Side branches ligated with Hemoclips. The vein was about 4-5 mm in diameter. More medially, the incision was carried deeper, and the brachial artery dissected free and controlled with a vessel loop. It was dissected free proximally and distally as a soft artery with a good pulse. The cephalic vein was then divided distally as possible. Distal portion ligated with Hemoclips. A #3 Robbi catheter was passed through the vein and passed easily without resistance. The vein was then fashioned appropriately for anastomosis. The patient was given 5000 units of intravenous heparin. After 3 minutes, the brachial artery was clamped proximally and distally. Arteriotomy was made. Anastomosis made between the end of the vein and side of the artery with a running suture of 7-0 Prolene. While the anastomosis was being done, the patient developed hypotension and at one point anesthesia was not able to obtain a blood pressure. He was resuscitated. However, with pentecostal of blood pressure the anastomosis was completed. Once it was completed, there was a palpable thrill over the fistula, pulsatile pulse in the brachial artery distal to the fistula. Hemostasis was seen to be adequate. The wound was irrigated with saline and inspected for hemostasis, which was seen to be adequate. The wound was then closed with 3-0 Vicryl to the subcutaneous tissues and violette for the skin. Sterile dressing was applied. The patient tolerated the procedure well. Estimated blood loss was 20 mL. There were no complications. All counts were correct. Patient was taken to the recovery room in satisfactory condition. Job#: [id number] RI cc:STEFANO MACDONALD MD
[2018-05-22 11:05] VITALS: BP 148/79
== END | disposition home or self-care (01) ==
LOC: OR 05:05
PROVIDERS: ATTEND Surgery
DX: E11.22 Type 2 diabetes mellitus with diabetic chronic kidney disease (principal); I13.2 Hypertensive heart and chronic kidney disease with heart failure and with stage 5 chronic kidney disease, or end stage renal disease; I50.22 Chronic systolic (congestive) heart failure; N18.6 End stage renal disease; I95.9 Hypotension, unspecified; H54.7 Unspecified visual loss; D64.9 Anemia, unspecified; Z99.2 Dependence on renal dialysis; Z79.82 Long term (current) use of aspirin; Z79.4 Long term (current) use of insulin; Z89.431 Acquired absence of right foot
CPT/HCPCS: 36415; 36821; 80048; 82948; 85025; 85610; 85730; 93005; J0690; J2001; J7040; J1644